=== PATIENT | female | born 1930 | race Caucasian/White ===

== ENCOUNTER 2017-03-19 21:25 | Inpatient (IN) | payer MEDICARE, OTHER ==
[~2017-03-19] VITALS: Ht 160 cm; Wt 57.7 kg
[2017-03-19 21:28] VITALS: Ht 160 cm; Wt 57.7 kg
[2017-03-19 23:06] LABS: BASOPHILS % 0.4 % (0.0-2.0); EOSINOPHILS # 0.5 10^3/ul (0.0-0.5); EOSINOPHILS % 4.6 % (0.0-7.0); HEMATOCRIT 41.5 % (37.0-47.0); HEMOGLOBIN 13.5 g/dl (12.0-16.0); LYMPHOCYTES # 2.9 10^3/ul (0.8-2.9); LYMPHOCYTES % 28.6 % (15.0-51.0); MEAN CORPUSCULAR HEMOGLOBIN 29.9 pg (29.0-33.0); MEAN CORPUSCULAR HGB CONC 32.5 g/dl (32.0-37.0); MEAN CORPUSCULAR VOLUME 91.8 fl (82.0-101.0); MEAN PLATELET VOLUME 11.1 fl (7.4-10.4); MONOCYTES % 9.7 % (0.0-11.0); NEUTROPHIL # 5.7 10^3/ul (1.6-7.5); NEUTROPHILS % 56.4 % (39.0-77.0); PLATELET COUNT 267 10^3/UL (140-415); RED BLOOD COUNT 4.52 10^6/ul (4.20-5.40); RED CELL DISTRIBUTION WIDTH 13.4 % (11.5-14.5); WHITE BLOOD COUNT 10.1 10^3/ul (4.8-10.8)
[2017-03-19 23:28] LABS: ALBUMIN 3.3 g/dl (3.3-4.9); ALBUMIN/GLOBULIN RATIO 0.91; BILIRUBIN,INDIRECT 0.3 mg/dl (0-1.1); BILIRUBIN,TOTAL 0.3 mg/dl (0.2-1.3); CALCIUM 9.4 mg/dl (8.4-10.2); CREATININE 0.66 mg/dl (0.44-1.00); POTASSIUM 4.2 mmol/L (3.5-5.1); TOTAL PROTEIN 6.9 g/dl (6.1-8.1)
[2017-03-20] MEDS ORDERED: PIPER-TAZO 3.375 GM IV (PMX) 50 ML IVPB STA (00:02)
[2017-03-20] MEDS ORDERED: VANCOMYCIN 1 GM (PMX) 250 ML IVPB SCH (00:30)
[2017-03-20 01:45] VITALS: TEMP 98.3
--- NOTE | 2017-03-20 02:08 | ERD ---
ER Documentation Chief Complaint Chief Complaint BIBA from [facility],left foot diabetic foot ulcer check HPI 86-year-old female brought at [facility] for left foot diabetic foot ulcer. Patient cannot provide any relevant history. History is per EMS run sheet. ROS All systems reviewed and are negative except as per history of present illness. Allergies Allergies: Coded Allergies: No Known Allergy (Unverified , 03/19/17) PMhx/Soc History of Surgery: No Anesthesia Reaction: No Hx Neurological Disorder: Yes (Dementia, ALz) Hx Psychiatric Problems: No Hx Miscellaneous Medical Probl: No Hx Alcohol Use: No Hx Substance Use: No Hx Tobacco Use: No Smoking Status: Never smoker Physical Exam Vitals Vital Signs Date Time Temp Pulse Resp B/P Pulse Ox O2 Delivery O2 Flow Rate FiO2 03/19/17 21:28 98.3 87 18 119/58 95 Physical Exam Const: [] Head: Atraumatic Eyes: Normal Conjunctiva ENT: Normal External Ears, Nose and Mouth. Neck: Full range of motion..~ No meningismus. Resp: Clear to auscultation bilaterally Cardio: Regular rate and rhythm, no murmurs Abd: Soft, non tender, non distended. Normal bowel sounds Skin: No petechiae or rashes Back: No midline or flank tenderness Ext: No cyanosis, or edema Neur: Awake and alert Psych: Normal Mood and Affect Result Diagram: 03/19/17 2300 03/19/17 2300 Results 24 hrs Laboratory Tests Test 03/19/17 23:00 White Blood Count 10.110^3/ul Red Blood Count 4.5210^6/ul Hemoglobin 13.5g/dl Hematocrit 41.5% Mean Corpuscular Volume 91.8fl Mean Corpuscular Hemoglobin 29.9pg Mean Corpuscular Hemoglobin Concent 32.5g/dl Red Cell Distribution Width 13.4% Platelet Count 82442^3/UL Mean Platelet Volume 11.1fl Neutrophils % 56.4% Lymphocytes % 28.6% Monocytes % 9.7% Eosinophils % 4.6% Basophils % 0.4% Nucleated Red Blood Cells % 0.0/100WBC Neutrophils # 5.710^3/ul Lymphocytes # 2.910^3/ul Monocytes # 1.010^3/ul Eosinophils # 0.510^3/ul Basophils # 0.010^3/ul Nucleated Red Blood Cells # 0.010^3/ul Sodium Level 142mmol/L Potassium Level 4.2mmol/L Chloride Level 109mmol/L Carbon Dioxide Level 29mmol/L Anion Gap 8 Blood Urea Nitrogen 21mg/dl Creatinine 0.66mg/dl Glucose Level 115mg/dl Calcium Level 9.4mg/dl Total Bilirubin 0.3mg/dl Direct Bilirubin 0.00mg/dl Indirect Bilirubin 0.3mg/dl Aspartate Amino Transf (AST/SGOT) 21IU/L Alanine Aminotransferase (ALT/SGPT) 32IU/L Alkaline Phosphatase 111IU/L Total Protein 6.9g/dl Albumin 3.3g/dl Globulin 3.60g/dl Albumin/Globulin Ratio 0.91 Lipase 53U/L Current Medications Medications (Trade) Dose Ordered Sig/Osmin Route PRN Reason Start Time Stop Time Status Last Admin Dose Admin Piperacillin Sod/ Tazobactam Sod 50 ml @ 100 mls/hr ONCE STAT IVPB 03/20/17 00:02 03/20/17 00:31 DC 03/20/17 01:23 Vancomycin HCl (Vancocin) 250 ml @ 125 mls/hr ONCE IVPB 03/20/17 00:30 03/20/17 02:29 03/20/17 01:57 Procedures/MDM Medical decision made: 86 year female who looks to be infected diabetic foot ulcer. Started on Zosyn. Admitted to observation status to hospitalist Departure Diagnosis: Primary Impression: Encounter for wound re-check Condition: Serious JOSE ANTONIO NATHAN Mar 20, 2017 02:08
[2017-03-20 03:40] VITALS: BP 115/56; RESP 20
[2017-03-20] MEDS ORDERED: LEVE500S8 GTB ×2 (04:22→04:25)
[2017-03-20] MEDS ORDERED: SYN1 PO (04:26)
[2017-03-20] MEDS ORDERED: AMLO2.5T2 PO (04:28)
[2017-03-20] MEDS ORDERED: LISI20TA11 PO (04:28)
[2017-03-20] MEDS ORDERED: TRAM-40 GTB (04:29)
[2017-03-20] MEDS ORDERED: PANT40TA3 PO (04:29)
[2017-03-20] MEDS ORDERED: PENDING SANTYL ORDER FOR WOUND CARE XX PRN (04:30)
[2017-03-20] MEDS ORDERED: VANCOMYCIN IV PER PHARMACY XX SCH (04:30)
[2017-03-20] MEDS ORDERED: ASC500 PO (04:30)
[2017-03-20] MEDS ORDERED: GLUCAGON 1 MG INJ IM PRN (05:00)
[2017-03-20] MEDS ORDERED: DEXTROSE 50% 50 ML SYRINGE IV PRN ×2 (05:00)
[2017-03-20] MEDS ORDERED: GLUCOSE GEL 15 GRAM TUBE BUCCAL PRN (05:00)
[2017-03-20] MEDS ORDERED: GLUCOSE GEL 15 GRAM TUBE PO PRN ×2 (05:00)
[2017-03-20] MEDS ORDERED: INSULIN ASPART [NOVOLOG] 3 ML PEN SC SCH (05:00)
[2017-03-20] MEDS: INSULIN ASPART [NOVOLOG] 3 ML PEN SC SCH ×3 (05:57→18:06)
[2017-03-20] MEDS: ACCU-CHEK XX SCH ×3 (05:57→18:00)
[2017-03-20 07:56] LABS: BASOPHIL # 0.1 10^3/ul (0.0-0.1); BASOPHILS % 0.5 % (0.0-2.0); EOSINOPHILS # 0.5 10^3/ul (0.0-0.5); EOSINOPHILS % 5.2 % (0.0-7.0); HEMATOCRIT 39.2 % (37.0-47.0); HEMOGLOBIN 12.7 g/dl (12.0-16.0); LYMPHOCYTES # 2.8 10^3/ul (0.8-2.9); LYMPHOCYTES % 27.3 % (15.0-51.0); MEAN CORPUSCULAR HEMOGLOBIN 30.2 pg (29.0-33.0); MEAN CORPUSCULAR HGB CONC 32.4 g/dl (32.0-37.0); MEAN CORPUSCULAR VOLUME 93.1 fl (82.0-101.0); MEAN PLATELET VOLUME 11.3 fl (7.4-10.4); NEUTROPHIL # 5.9 10^3/ul (1.6-7.5); NEUTROPHILS % 56.6 % (39.0-77.0); PLATELET COUNT 273 10^3/UL (140-415); RED BLOOD COUNT 4.21 10^6/ul (4.20-5.40); RED CELL DISTRIBUTION WIDTH 13.5 % (11.5-14.5); WHITE BLOOD COUNT 10.3 10^3/ul (4.8-10.8)
[2017-03-20 08:02] LABS: ALBUMIN 3.1 g/dl (3.3-4.9); ALBUMIN/GLOBULIN RATIO 0.83; BILIRUBIN,INDIRECT 0.5 mg/dl (0-1.1); BILIRUBIN,TOTAL 0.5 mg/dl (0.2-1.3); CALCIUM 9.3 mg/dl (8.4-10.2); CREATININE 0.71 mg/dl (0.44-1.00); POTASSIUM 5.2 mmol/L (3.5-5.1); TOTAL PROTEIN 6.8 g/dl (6.1-8.1)
[2017-03-20 08:11] VITALS: BP_SYST 131; BP_SYST 82; BP_DIAS 59; BP_DIAS 75; RESP 18
[2017-03-20] MEDS: LISINOPRIL 20 MG TAB PO SCH (09:00)
[2017-03-20] MEDS: AMLODIPINE 2.5 MG TAB PO SCH ×2 (09:00→21:02)
[2017-03-20] MEDS: LEVOTHYROXINE 100 MCG TAB PO SCH (09:22)
[2017-03-20] MEDS: CEFEPIME 1GM/50 ML (PMX) 50 ML IVPB SCH ×2 (09:22→21:02)
[2017-03-20] MEDS: LEVETIRACETAM (100 MG/ML) 5ML CUP GTB SCH ×2 (09:22→21:02)
[2017-03-20] MEDS: ASCORBIC ACID 500 MG TAB PO SCH (09:22)
[2017-03-20 15:23] VITALS: BP 91/62
--- NOTE | 2017-03-20 15:39 | PN ---
Date/Time of Note Date/Time of Note DATE: 03/20/17 TIME: 15:35 Assessment/Plan VTE Prophylaxis VTE Prophylaxis Intervention: SCD's Lines/Catheters IV Catheter Type (from [facility] [place]): Saline Lock Urinary Cath still in place: No Assessment/Plan Chief Complaint/Hosp Course Assessment and plan 1. Left foot heel decubitus ulcer. Airconditioning Drafting Officer consulted. Will also get infectious disease regulatory services consultant for antibiotic management. 2. Diabetes. Continue insulin regimen. Will adjust need. 3. Suspect history of seizure. Continue Keppra 4. Hypertension. Continue on antihypertensives. Adjust as needed. 5..Dementia. Continue with aspiration and fall precautions Disposition plan: Continue antibiotics. Wound child care specialist to follow. Follow-up with screw eye assembler. Discussed plan of care with Dr. Velarde Problems: Subjective 24 Hr Interval Summary Free Text/Dictation no s/s of distress. nonverbal at baseline Exam/Review of Systems Vital Signs Vitals Vital Signs Date Time Temp Pulse Resp B/P Pulse Ox O2 Delivery O2 Flow Rate FiO2 03/20/17 15:23 98.1 68 91/62 96 03/20/17 08:11 18 03/20/17 01:45 Room Air Intake and Output 03/19/17 03/19/17 03/20/17 15:00 23:00 07:00 Intake Total 250 ml Balance 250 ml Exam Constitutional: alert, No oriented Eyes: nl conjunctiva Neck: supple Respiratory: clear to auscultation, normal air movement Cardiovascular: other Gastrointestinal: other (PEG tube in place), soft (Regular rate) Musculoskeletal: other (Left foot heel decubitus ulcer) Neurological: other (Nonverbal at baseline) Results Result Diagram: 03/20/1751903/20/17 0520 Results 24 hrs Laboratory Tests Test 03/19/17 23:00 03/20/17 03:46 03/20/17 05:20 03/20/17 05:29 White Blood Count 10.1 10.3 Red Blood Count 4.52 4.21 Hemoglobin 13.5 12.7 Hematocrit 41.5 39.2 Mean Corpuscular Volume 91.8 93.1 Mean Corpuscular Hemoglobin 29.9 30.2 Mean Corpuscular Hemoglobin Concent 32.5 32.4 Red Cell Distribution Width 13.4 13.5 Platelet Count 267 273 Mean Platelet Volume 11.1 H 11.3 H Neutrophils % 56.4 56.6 Lymphocytes % 28.6 27.3 Monocytes % 9.7 10.0 Eosinophils % 4.6 5.2 Basophils % 0.4 0.5 Nucleated Red Blood Cells % 0.0 0.0 Neutrophils # 5.7 5.9 Lymphocytes # 2.9 2.8 Monocytes # 1.0 H 1.0 H Eosinophils # 0.5 0.5 Basophils # 0.0 0.1 Nucleated Red Blood Cells # 0.0 0.0 Sodium Level 142 144 Potassium Level 4.2 5.2 H Chloride Level 109 114 H Carbon Dioxide Level 29 25 Anion Gap 8 10 Blood Urea Nitrogen 21 H 20 Creatinine 0.66 0.71 Glucose Level 115 115 Calcium Level 9.4 9.3 Total Bilirubin 0.3 0.5 Direct Bilirubin 0.00 0.00 Indirect Bilirubin 0.3 0.5 Aspartate Amino Transf (AST/SGOT) 21 46 Alanine Aminotransferase (ALT/SGPT) 32 14 Alkaline Phosphatase 111 104 Total Protein 6.9 6.8 Albumin 3.3 3.1 L Globulin 3.60 H 3.70 H Albumin/Globulin Ratio 0.91 0.83 Lipase 53 Bedside Glucose 127 Hemoglobin A1c 5.9 Test 03/20/17 05:56 03/20/17 12:12 Bedside Glucose 127 121 Medications Medications Current Medications Cefepime HCl (Maxipime 1gm/50 ml (Pmx)) 50 ml @ 100 mls/hr Q12 IVPB Last administered on 03/20/17t 09:22; Admin Dose 100 MLS/HR; Start 03/20/17 at 09: 00 Diagnostic Test (Pha) (Accu-Chek) 1 ea Q6 XX ; Start 03/20/17 at 06:00 Miscellaneous Information (Pending Santyl Order For Wound Care) This patient torres... PRN PRN XX WOUND CARE; Start 03/20/17 at 04:30 Miscellaneous Information 1 ea NOTE XX ; Start 03/20/17 at 05:00 Glucose (Glutose) 15 gm Q15M PRN PO DECREASED GLUCOSE; Start 03/20/17 at 05:00 Glucose (Glutose) 22.5 gm Q15M PRN PO DECREASED GLUCOSE; Start 03/20/17 at 05: 00 Dextrose (D50w Syringe) 25 ml Q15M PRN IV DECREASED GLUCOSE; Start 03/20/17 at 05:00 Dextrose (D50w Syringe) 50 ml Q15M PRN IV DECREASED GLUCOSE; Start 03/20/17 at 05:00 Glucagon (Glucagen) 1 mg Q15M PRN IM DECREASED GLUCOSE; Start 03/20/17 at 05: 00 Glucose 15 gm 15 gm Q15M PRN BUCCAL DECREASED GLUCOSE; Start 03/20/17 at 05:00 Vancomycin HCl/ Dextrose/Water (Vancocin/D5W) 150 ml @ 75 mls/hr Q24H IVPB ; Start 03/21/17 at 02:00 Insulin Aspart (Novolog Insulin Pen) NOVOLOG *MODERATE* ALGORI... Q6 SC ; Start 03/20/17 at 06:00 Amlodipine Besylate (Norvasc) 2.5 mg BID PO ; Start 03/20/17 at 09:00 Ascorbic Acid (Vitamin C) 500 mg DAILY PO Last administered on 03/20/17 09:22 ; Admin Dose 500 MG; Start 03/20/17 at 09:00 Levetiracetam (Keppra Liquid) 500 mg BID GTB Last administered on 03/20/17 09 :22; Admin Dose 500 MG; Start 03/20/17 at 09:00 Lisinopril (Zestril) 20 mg DAILY PO ; Start 03/20/17 at 09:00 Tramadol HCl (Ultram) 50 mg Q6H PRN GTB PAIN; Start 03/20/17 at 07:00 Influenza Virus Vaccine (Fluzone) 0.5 ml ONCE ONCE IM* ; Start 03/21/17 at 09: 00; Stop 03/21/17 at 09:01 Collagenase (Santyl) 1 applic DAILY TOP ; Start 03/21/17 at 21:00 MARY KAY CORONADO Mar 20, 2017 15:39
[2017-03-20] MEDS ORDERED: NA POLYST SULFON 15 GM/60 ML BTL GTB ONE (20:30)
[2017-03-20 20:47] VITALS: BP 139/62; RESP 19
--- NOTE | 2017-03-20 23:51 | HP ---
Date/Time of Note Date/Time of Note DATE: 03/20/17 TIME: 23:51 Assessment/Plan VTE Prophylaxis VTE Prophylaxis Intervention: heparin Lines/Catheters [facility] Saline Lock Urinary Cath still in place: No Assessment/Plan Assessment/Plan 86 yo female with hx of severe dementia, CAD, DM, ?seizure who was sent from [facility] for left diabetic foot ulcer. PLAN IV abx pain mgmt wound care consult wound culture podiatry eval. will leave decision to podiatry about imaging cont home meds with adjustment as needed CODE STATUS: DNR/DNI HPI/ROS Admit Date/Time Admit Date/Time Mar 20, 2017 at 03:35 Hx of Present Illness This is an 86 yo female with hx of severe dementia, CAD, DM, ?seizure who was sent from [facility] for left diabetic foot ulcer. patient is not able to provide hx, but noted to be moaning moved and during physical exam. Vitals, CBC and CMP WNL. PMH/Family/Social Social History Smoking Status: Unknown if ever smoked Exam/Review of Systems Vital Signs Vitals Vital Signs Date Time Temp Pulse Resp B/P Pulse Ox O2 Delivery O2 Flow Rate FiO2 03/20/17 20:47 98.7 81 19 139/62 93 03/20/17 01:45 Room Air Intake and Output 03/19/17 03/19/17 03/20/17 15:00 23:00 07:00 Intake Total 250 ml Balance 250 ml Exam Constitutional: distress Head: atraumatic, normocephalic Eyes: PERRL Respiratory: clear to auscultation Cardiovascular: nl pulses, regular rate and rhythm Gastrointestinal: soft Extremities: other (left foot/LE ulcer) Labs Result Diagram: 03/20/1751903/20/17519 Medications Medications Current Medications Cefepime HCl (Maxipime 1gm/50 ml (Pmx)) 50 ml @ 100 mls/hr Q12 IVPB Last administered on 03/20/17t 21:02; Admin Dose 100 MLS/HR; Start 03/20/17 at 09: 00 Diagnostic Test (Pha) (Accu-Chek) 1 ea Q6 XX ; Start 03/20/17 at 06:00 [facility] This patient torres... PRN PRN XX WOUND CARE; Start 03/20/17 at 04:30 Miscellaneous Information 1 ea NOTE XX ; Start 03/20/17 at 05:00 Glucose (Glutose) 15 gm Q15M PRN PO DECREASED GLUCOSE; Start 03/20/17 at 05:00 Glucose (Glutose) 22.5 gm Q15M PRN PO DECREASED GLUCOSE; Start 03/20/17 at 05: 00 Dextrose (D50w Syringe) 25 ml Q15M PRN IV DECREASED GLUCOSE; Start 03/20/17 at 05:00 Dextrose (D50w Syringe) 50 ml Q15M PRN IV DECREASED GLUCOSE; Start 03/20/17 at 05:00 Glucagon (Glucagen) 1 mg Q15M PRN IM DECREASED GLUCOSE; Start 03/20/17 at 05: 00 Glucose 15 gm 15 gm Q15M PRN BUCCAL DECREASED GLUCOSE; Start 03/20/17 at 05:00 Vancomycin HCl/ Dextrose/Water (Vancocin/D5W) 150 ml @ 75 mls/hr Q24H IVPB ; Start 03/21/17 at 02:00 Insulin Aspart (Novolog Insulin Pen) NOVOLOG *MODERATE* ALGORI... Q6 SC Last administered on 03/20/17 18:06; Admin Dose 1 UNIT; Start 03/20/17 at 06:00 Amlodipine Besylate (Norvasc) 2.5 mg BID PO Last administered on 03/20/17 21: 02; Admin Dose 2.5 MG; Start 03/20/17 at 09:00 Ascorbic Acid (Vitamin C) 500 mg DAILY PO Last administered on 03/20/17 09:22 ; Admin Dose 500 MG; Start 03/20/17 at 09:00 Levetiracetam (Keppra Liquid) 500 mg BID GTB Last administered on 03/20/17 21 :02; Admin Dose 500 MG; Start 03/20/17 at 09:00 Lisinopril (Zestril) 20 mg DAILY PO ; Start 03/20/17 at 09:00 Tramadol HCl (Ultram) 50 mg Q6H PRN GTB PAIN; Start 03/20/17 at 07:00 Influenza Virus Vaccine (Fluzone) 0.5 ml ONCE ONCE IM* ; Start 03/21/17 at 09: 00; Stop 03/21/17 at 09:01 Collagenase (Santyl) 1 applic DAILY TOP ; Start 03/21/17 at 21:00 JOSE ANTONIO DILLARD MD Mar 20, 2017 23:51
[2017-03-21] MEDS: INSULIN ASPART [NOVOLOG] 3 ML PEN SC SCH ×4 (00:32→17:20)
[2017-03-21] MEDS: ACCU-CHEK XX SCH ×4 (00:35→17:20)
[2017-03-21] MEDS: VANCOMYCIN 750 MG in DEXTROSE 5% 150 ML IVPB SCH (02:08)
[2017-03-21 02:11] VITALS: BP 130/79; RESP 18
[2017-03-21 05:46] LABS: BASOPHILS % 0.5 % (0.0-2.0); EOSINOPHILS # 0.4 10^3/ul (0.0-0.5); EOSINOPHILS % 4.6 % (0.0-7.0); HEMATOCRIT 39.6 % (37.0-47.0); HEMOGLOBIN 12.9 g/dl (12.0-16.0); LYMPHOCYTES # 2.4 10^3/ul (0.8-2.9); LYMPHOCYTES % 28.8 % (15.0-51.0); MEAN CORPUSCULAR HEMOGLOBIN 29.5 pg (29.0-33.0); MEAN CORPUSCULAR HGB CONC 32.6 g/dl (32.0-37.0); MEAN CORPUSCULAR VOLUME 90.6 fl (82.0-101.0); MEAN PLATELET VOLUME 10.6 fl (7.4-10.4); MONOCYTE # 0.9 10^3/ul (0.3-0.9); MONOCYTES % 10.5 % (0.0-11.0); NEUTROPHIL # 4.5 10^3/ul (1.6-7.5); NEUTROPHILS % 55.2 % (39.0-77.0); PLATELET COUNT 284 10^3/UL (140-415); RED BLOOD COUNT 4.37 10^6/ul (4.20-5.40); RED CELL DISTRIBUTION WIDTH 13.2 % (11.5-14.5); WHITE BLOOD COUNT 8.2 10^3/ul (4.8-10.8)
[2017-03-21] MEDS: LEVOTHYROXINE 100 MCG TAB PO SCH (06:10)
[2017-03-21 06:12] LABS: CALCIUM 9.1 mg/dl (8.4-10.2); CREATININE 0.67 mg/dl (0.44-1.00); POTASSIUM 3.5 mmol/L (3.5-5.1)
[2017-03-21 07:52] VITALS: BP 132/88; RESP 18
[2017-03-21] MEDS: CEFEPIME 1GM/50 ML (PMX) 50 ML IVPB SCH ×2 (08:25→21:05)
[2017-03-21] MEDS: LEVETIRACETAM (100 MG/ML) 5ML CUP GTB SCH ×2 (08:25→21:05)
[2017-03-21] MEDS: LISINOPRIL 20 MG TAB PO SCH (08:26)
[2017-03-21] MEDS: ASCORBIC ACID 500 MG TAB PO SCH (08:26)
[2017-03-21] MEDS: AMLODIPINE 2.5 MG TAB PO SCH ×2 (08:26→21:05)
[2017-03-21] MEDS ORDERED: INFLUENZA VIRUS VACCINE 0.5 ML (DISPENSING) IM* ONE (09:00)
--- NOTE | 2017-03-21 13:01 | CONS ---
Date/Time of Note Date/Time of Note DATE: 03/21/17 TIME: 13:01 Consultation Date/Type/Reason Admit Date/Time Mar 20, 2017 at 03:35 Social History Smoking Status: Unknown if ever smoked Exam/Review of Systems Vital Signs Vitals Vital Signs Date Time Temp Pulse Resp B/P Pulse Ox O2 Delivery O2 Flow Rate FiO2 03/21/17 07:52 97.9 91 18 132/88 97 03/20/17 01:45 Room Air Intake and Output 03/20/17 03/20/17 03/21/17 15:00 23:00 07:00 Intake Total 50 ml 50 ml 150 ml Balance 50 ml 50 ml 150 ml Results Result Diagram: 03/21/1752303/21/1724 Results 24 hrs Laboratory Tests Test 03/20/17 17:51 03/21/17 00:29 03/21/17 05:24 03/21/17 06:06 Bedside Glucose 154 169 149 White Blood Count 8.2 # Red Blood Count 4.37 Hemoglobin 12.9 Hematocrit 39.6 Mean Corpuscular Volume 90.6 Mean Corpuscular Hemoglobin 29.5 Mean Corpuscular Hemoglobin Concent 32.6 Red Cell Distribution Width 13.2 Platelet Count 284 Mean Platelet Volume 10.6 H Neutrophils % 55.2 Lymphocytes % 28.8 Monocytes % 10.5 Eosinophils % 4.6 Basophils % 0.5 Nucleated Red Blood Cells % 0.0 Neutrophils # 4.5 Lymphocytes # 2.4 Monocytes # 0.9 Eosinophils # 0.4 Basophils # 0.0 Nucleated Red Blood Cells # 0.0 Sodium Level 146 H Potassium Level 3.5 Chloride Level 111 H Carbon Dioxide Level 28 Anion Gap 11 Blood Urea Nitrogen 17 Creatinine 0.67 Glucose Level 134 Calcium Level 9.1 Test 03/21/17 11:50 Bedside Glucose 170 Medications Medications Current Medications Cefepime HCl (Maxipime 1gm/50 ml (Pmx)) 50 ml @ 100 mls/hr Q12 IVPB Last administered on 03/21/17 08:25; Admin Dose 100 MLS/HR; Start 03/20/17 at 09: 00 Diagnostic Test (Pha) (Accu-Chek) 1 ea Q6 XX Last administered on 03/21/17 12 :06; Admin Dose 1 EA; Start 03/20/17 at 06:00 Miscellaneous Information (Pending Santyl Order For Wound Care) This patient torres... PRN PRN XX WOUND CARE; Start 03/20/17 at 04:30 Miscellaneous Information 1 ea NOTE XX ; Start 03/20/17 at 05:00 Glucose (Glutose) 15 gm Q15M PRN PO DECREASED GLUCOSE; Start 03/20/17 at 05:00 Glucose (Glutose) 22.5 gm Q15M PRN PO DECREASED GLUCOSE; Start 03/20/17 at 05: 00 Dextrose (D50w Syringe) 25 ml Q15M PRN IV DECREASED GLUCOSE; Start 03/20/17 at 05:00 Dextrose (D50w Syringe) 50 ml Q15M PRN IV DECREASED GLUCOSE; Start 03/20/17 at 05:00 Glucagon (Glucagen) 1 mg Q15M PRN IM DECREASED GLUCOSE; Start 03/20/17 at 05: 00 Glucose 15 gm 15 gm Q15M PRN BUCCAL DECREASED GLUCOSE; Start 03/20/17 at 05:00 Vancomycin HCl/ Dextrose/Water (Vancocin/D5W) 150 ml @ 75 mls/hr Q24H IVPB Last administered on 03/21/17 02:08; Admin Dose 75 MLS/HR; Start 03/21/17 at 02:00 Insulin Aspart (Novolog Insulin Pen) NOVOLOG *MODERATE* ALGORI... Q6 SC Last administered on 03/21/17 12:09; Admin Dose 2 UNIT; Start 03/20/17 at 06:00 Amlodipine Besylate (Norvasc) 2.5 mg BID PO Last administered on 03/21/17 08: 26; Admin Dose 2.5 MG; Start 03/20/17 at 09:00 Ascorbic Acid (Vitamin C) 500 mg DAILY PO Last administered on 03/21/17 08:26 ; Admin Dose 500 MG; Start 03/20/17 at 09:00 Levetiracetam (Keppra Liquid) 500 mg BID GTB Last administered on 03/21/17 08 :25; Admin Dose 500 MG; Start 03/20/17 at 09:00 Lisinopril (Zestril) 20 mg DAILY PO Last administered on 03/21/17 08:26; Admin Dose 20 MG; Start 03/20/17 at 09:00 Tramadol HCl (Ultram) 50 mg Q6H PRN GTB PAIN; Start 03/20/17 at 07:00 Collagenase (Santyl) 1 applic DAILY TOP Last administered on 03/21/17t 00:34; Admin Dose 1 APPLIC; Start 03/21/17 at 21:00 JUNIOR BAKER MD Mar 21, 2017 13:01
--- NOTE | 2017-03-21 13:29 | CONS ---
Date/Time of Note Date/Time of Note DATE: 03/21/17 TIME: 13:27 Assessment/Plan Assessment/Plan Chief Complaint/Hosp Course 1. DM foot infection 2. hx of cad, dm 3. hx of Dementia R: probiotics cont. abx f/u cxs consider xray foot (ordered) podiatry f/u Problems: Consultation Date/Type/Reason Admit Date/Time Mar 20, 2017 at 03:35 Date of Consultation: Mar 21, 2017 Type of Consultation: id Reason for Consultation abx recs Referring Provider: MARY KAY CORONADO Hx of Present Illness 86 yo female with pmh of apparent cad,dm, seizures, advanced dementia, admitted for worsening dm foot ulcer. Social History Smoking Status: Unknown if ever smoked Exam/Review of Systems Vital Signs Vitals Vital Signs Date Time Temp Pulse Resp B/P Pulse Ox O2 Delivery O2 Flow Rate FiO2 03/21/17 07:52 97.9 91 18 132/88 97 03/20/17 01:45 Room Air Intake and Output 03/20/17 03/20/17 03/21/17 15:00 23:00 07:00 Intake Total 50 ml 50 ml 150 ml Balance 50 ml 50 ml 150 ml Results Result Diagram: 03/21/1724 03/21/17 0524 Results 24 hrs Laboratory Tests Test 03/20/17 17:51 03/21/17 00:29 03/21/17 05:24 03/21/17 06:06 Bedside Glucose 154 169 149 White Blood Count 8.2 # Red Blood Count 4.37 Hemoglobin 12.9 Hematocrit 39.6 Mean Corpuscular Volume 90.6 Mean Corpuscular Hemoglobin 29.5 Mean Corpuscular Hemoglobin Concent 32.6 Red Cell Distribution Width 13.2 Platelet Count 284 Mean Platelet Volume 10.6 H Neutrophils % 55.2 Lymphocytes % 28.8 Monocytes % 10.5 Eosinophils % 4.6 Basophils % 0.5 Nucleated Red Blood Cells % 0.0 Neutrophils # 4.5 Lymphocytes # 2.4 Monocytes # 0.9 Eosinophils # 0.4 Basophils # 0.0 Nucleated Red Blood Cells # 0.0 Sodium Level 146 H Potassium Level 3.5 Chloride Level 111 H Carbon Dioxide Level 28 Anion Gap 11 Blood Urea Nitrogen 17 Creatinine 0.67 Glucose Level 134 Calcium Level 9.1 Test 03/21/17 11:50 Bedside Glucose 170 Medications Medications Current Medications Cefepime HCl (Maxipime 1gm/50 ml (Pmx)) 50 ml @ 100 mls/hr Q12 IVPB Last administered on 03/21/17 08:25; Admin Dose 100 MLS/HR; Start 03/20/17 at 09: 00 Diagnostic Test (Pha) (Accu-Chek) 1 ea Q6 XX Last administered on 03/21/17 12 :06; Admin Dose 1 EA; Start 03/20/17 at 06:00 Miscellaneous Information (Pending Santyl Order For Wound Care) This patient torres... PRN PRN XX WOUND CARE; Start 03/20/17 at 04:30 Miscellaneous Information 1 ea NOTE XX ; Start 03/20/17 at 05:00 Glucose (Glutose) 15 gm Q15M PRN PO DECREASED GLUCOSE; Start 03/20/17 at 05:00 Glucose (Glutose) 22.5 gm Q15M PRN PO DECREASED GLUCOSE; Start 03/20/17 at 05: 00 Dextrose (D50w Syringe) 25 ml Q15M PRN IV DECREASED GLUCOSE; Start 03/20/17 at 05:00 Dextrose (D50w Syringe) 50 ml Q15M PRN IV DECREASED GLUCOSE; Start 03/20/17 at 05:00 Glucagon (Glucagen) 1 mg Q15M PRN IM DECREASED GLUCOSE; Start 03/20/17 at 05: 00 Glucose 15 gm 15 gm Q15M PRN BUCCAL DECREASED GLUCOSE; Start 03/20/17 at 05:00 Vancomycin HCl/ Dextrose/Water (Vancocin/D5W) 150 ml @ 75 mls/hr Q24H IVPB Last administered on 03/21/17 02:08; Admin Dose 75 MLS/HR; Start 03/21/17 at 02:00 Insulin Aspart (Novolog Insulin Pen) NOVOLOG *MODERATE* ALGORI... Q6 SC Last administered on 03/21/17 12:09; Admin Dose 2 UNIT; Start 03/20/17 at 06:00 Amlodipine Besylate (Norvasc) 2.5 mg BID PO Last administered on 03/21/17 08: 26; Admin Dose 2.5 MG; Start 03/20/17 at 09:00 Ascorbic Acid (Vitamin C) 500 mg DAILY PO Last administered on 03/21/17 08:26 ; Admin Dose 500 MG; Start 03/20/17 at 09:00 Levetiracetam (Keppra Liquid) 500 mg BID GTB Last administered on 03/21/17 08 :25; Admin Dose 500 MG; Start 03/20/17 at 09:00 Lisinopril (Zestril) 20 mg DAILY PO Last administered on 03/21/17 08:26; Admin Dose 20 MG; Start 03/20/17 at 09:00 Tramadol HCl (Ultram) 50 mg Q6H PRN GTB PAIN; Start 03/20/17 at 07:00 Collagenase (Santyl) 1 applic DAILY TOP Last administered on 03/21/17 00:34; Admin Dose 1 APPLIC; Start 03/21/17 at 21:00 JUNIOR BAKER MD Mar 21, 2017 13:29
--- NOTE | 2017-03-21 13:34 | CONS ---
Date/Time of Note Date/Time of Note DATE: 03/21/17 TIME: 13:30 Assessment/Plan Assessment/Plan Problems: (1) Decubitus ulcer of left heel, stage 3 (2) Contracture of muscle of lower extremity (3) Diabetes, polyneuropathy (4) Peripheral vascular disease Additional Assessment/Plan Daily dressing changes with Santyl ointment to the wound. Elevate heels off of the bed with pillows. Patient will be followed in-house. Consultation Date/Type/Reason Admit Date/Time Mar 20, 2017 at 03:35 Date of Consultation: Mar 21, 2017 Type of Consultation: Foot and ankle surgery Reason for Consultation Decubitus ulcer left heel Hx of Present Illness Thank you very much for involving care of this patient. As you know and 86-year -old female patient with history of severe dementia, diabetes mellitus, CAD who and seizure disorder was brought over from [facility] for left foot ulceration. I was consulted for evaluation. Most of the history is obtained from chart review. Constitutional: no complaints Eyes: no complaints ENT: no complaints Respiratory: no complaints Cardiovascular: no complaints Gastrointestinal: no complaints Past Medical History As per history of present illness. Past Surgical History As per history of present illness. Social History As per history of present illness. Smoking Status: Unknown if ever smoked Exam/Review of Systems Vital Signs Vitals Vital Signs Date Time Temp Pulse Resp B/P Pulse Ox O2 Delivery O2 Flow Rate FiO2 03/21/17 07:52 97.9 91 18 132/88 97 03/20/17 01:45 Room Air Intake and Output 03/20/17 03/20/17 03/21/17 15:00 23:00 07:00 Intake Total 50 ml 50 ml 150 ml Balance 50 ml 50 ml 150 ml Exam Severely contracted patient no acute distress. Heel decubitus ulceration noted on the left heel with contracted lower extremity. There is necrotic tissue at the base with no active pus or bleeding. There is no erythema noted. Nonpalpable dorsalis pedis and posterior tibial pulse. Sensation is decreased to sharp dull vibratory temperature stimuli. Results Result Diagram: 03/21/17 0524 03/21/17 0524 Results 24 hrs Laboratory Tests Test 03/20/17 17:51 03/21/17 00:29 03/21/17 05:24 03/21/17 06:06 Bedside Glucose 154 169 149 White Blood Count 8.2 # Red Blood Count 4.37 Hemoglobin 12.9 Hematocrit 39.6 Mean Corpuscular Volume 90.6 Mean Corpuscular Hemoglobin 29.5 Mean Corpuscular Hemoglobin Concent 32.6 Red Cell Distribution Width 13.2 Platelet Count 284 Mean Platelet Volume 10.6 H Neutrophils % 55.2 Lymphocytes % 28.8 Monocytes % 10.5 Eosinophils % 4.6 Basophils % 0.5 Nucleated Red Blood Cells % 0.0 Neutrophils # 4.5 Lymphocytes # 2.4 Monocytes # 0.9 Eosinophils # 0.4 Basophils # 0.0 Nucleated Red Blood Cells # 0.0 Sodium Level 146 H Potassium Level 3.5 Chloride Level 111 H Carbon Dioxide Level 28 Anion Gap 11 Blood Urea Nitrogen 17 Creatinine 0.67 Glucose Level 134 Calcium Level 9.1 Test 03/21/17 11:50 Bedside Glucose 170 Medications Medications Current Medications Cefepime HCl (Maxipime 1gm/50 ml (Pmx)) 50 ml @ 100 mls/hr Q12 IVPB Last administered on 03/21/17 08:25; Admin Dose 100 MLS/HR; Start 03/20/17 at 09: 00 Diagnostic Test (Pha) (Accu-Chek) 1 ea Q6 XX Last administered on 03/21/17 12 :06; Admin Dose 1 EA; Start 03/20/17 at 06:00 [facility] This patient torres... PRN PRN XX WOUND CARE; Start 03/20/17 at 04:30 Miscellaneous Information 1 ea NOTE XX ; Start 03/20/17 at 05:00 Glucose (Glutose) 15 gm Q15M PRN PO DECREASED GLUCOSE; Start 03/20/17 at 05:00 Glucose (Glutose) 22.5 gm Q15M PRN PO DECREASED GLUCOSE; Start 03/20/17 at 05: 00 Dextrose (D50w Syringe) 25 ml Q15M PRN IV DECREASED GLUCOSE; Start 03/20/17 at 05:00 Dextrose (D50w Syringe) 50 ml Q15M PRN IV DECREASED GLUCOSE; Start 03/20/17 at 05:00 Glucagon (Glucagen) 1 mg Q15M PRN IM DECREASED GLUCOSE; Start 03/20/17 at 05: 00 Glucose 15 gm 15 gm Q15M PRN BUCCAL DECREASED GLUCOSE; Start 03/20/17 at 05:00 Vancomycin HCl/ Dextrose/Water (Vancocin/D5W) 150 ml @ 75 mls/hr Q24H IVPB Last administered on 03/21/17 02:08; Admin Dose 75 MLS/HR; Start 03/21/17 at 02:00 Insulin Aspart (Novolog Insulin Pen) NOVOLOG *MODERATE* ALGORI... Q6 SC Last administered on 03/21/17 12:09; Admin Dose 2 UNIT; Start 03/20/17 at 06:00 Amlodipine Besylate (Norvasc) 2.5 mg BID PO Last administered on 03/21/17 08: 26; Admin Dose 2.5 MG; Start 03/20/17 at 09:00 Ascorbic Acid (Vitamin C) 500 mg DAILY PO Last administered on 03/21/17 08:26 ; Admin Dose 500 MG; Start 03/20/17 at 09:00 Levetiracetam (Keppra Liquid) 500 mg BID GTB Last administered on 03/21/17 08 :25; Admin Dose 500 MG; Start 03/20/17 at 09:00 Lisinopril (Zestril) 20 mg DAILY PO Last administered on 03/21/17 08:26; Admin Dose 20 MG; Start 03/20/17 at 09:00 Tramadol HCl (Ultram) 50 mg Q6H PRN GTB PAIN; Start 03/20/17 at 07:00 Collagenase (Santyl) 1 applic DAILY TOP Last administered on 03/21/17 00:34; Admin Dose 1 APPLIC; Start 03/21/17 at 21:00 NICANOR HARP DPM Mar 21, 2017 13:34
[2017-03-21 14:28] VITALS: BP 110/56; RESP 20
--- NOTE | 2017-03-21 14:43 | PN ---
Date/Time of Note Date/Time of Note DATE: 03/21/17 TIME: 14:32 Assessment/Plan VTE Prophylaxis VTE Prophylaxis Intervention: SCD's Lines/Catheters IV C[facility]ter Type (from [facility]): Saline Lock Urinary Cath still in place: No Assessment/Plan Chief Complaint/Hosp Course Assessment and plan 1. Left foot heel decubitus ulcer. Crib Attendant consulted. continue wound care. abx regimen per ID 2. Diabetes. Continue insulin regimen. Will adjust need. 3. Suspect history of seizure. Continue Keppra 4. Hypertension. Continue on antihypertensives. Adjust as needed. 5..Dementia. Continue with aspiration and fall precautions Disposition plan: Continue antibiotics. continue wound care. d/c when cleared by consultants Discussed plan of care with Dr. Velarde Problems: Subjective 24 Hr Interval Summary Free Text/Dictation comfortable at present. no s/s of distress Exam/Review of Systems Vital Signs Vitals Vital Signs Date Time Temp Pulse Resp B/P Pulse Ox O2 Delivery O2 Flow Rate FiO2 03/21/17 14:28 97.7 76 20 110/56 97 03/20/17 01:45 Room Air Intake and Output 03/20/17 03/20/17 03/21/17 15:00 23:00 07:00 Intake Total 50 ml 50 ml 150 ml Balance 50 ml 50 ml 150 ml Exam Constitutional: alert (confused at baseline ) Psych: no complaints Head: normocephalic Eyes: nl conjunctiva Neck: non-tender, supple Respiratory: clear to auscultation Cardiovascular: nl pulses, regular rate and rhythm Gastrointestinal: non-tender, soft Musculoskeletal: nl extremities to inspection 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 (underlying dementia) Skin: nl turgor Results Result Diagram: 03/21/1724 03/21/17 0524 Results 24 hrs Laboratory Tests Test 03/20/17 17:51 03/21/17 00:29 03/21/17 05:24 03/21/17 06:06 Bedside Glucose 154 169 149 White Blood Count 8.2 # Red Blood Count 4.37 Hemoglobin 12.9 Hematocrit 39.6 Mean Corpuscular Volume 90.6 Mean Corpuscular Hemoglobin 29.5 Mean Corpuscular Hemoglobin Concent 32.6 Red Cell Distribution Width 13.2 Platelet Count 284 Mean Platelet Volume 10.6 H Neutrophils % 55.2 Lymphocytes % 28.8 Monocytes % 10.5 Eosinophils % 4.6 Basophils % 0.5 Nucleated Red Blood Cells % 0.0 Neutrophils # 4.5 Lymphocytes # 2.4 Monocytes # 0.9 Eosinophils # 0.4 Basophils # 0.0 Nucleated Red Blood Cells # 0.0 Sodium Level 146 H Potassium Level 3.5 Chloride Level 111 H Carbon Dioxide Level 28 Anion Gap 11 Blood Urea Nitrogen 17 Creatinine 0.67 Glucose Level 134 Calcium Level 9.1 Test 03/21/17 11:50 Bedside Glucose 170 Medications Medications Current Medications Cefepime HCl (Maxipime 1gm/50 ml (Pmx)) 50 ml @ 100 mls/hr Q12 IVPB Last administered on 03/21/17 08:25; Admin Dose 100 MLS/HR; Start 03/20/17 at 09: 00 Diagnostic Test (Pha) (Accu-Chek) 1 ea Q6 XX Last administered on 03/21/17 12 :06; Admin Dose 1 EA; Start 03/20/17 at 06:00 Miscellaneous Information (Pending [facility] Order For Wound Care) This patient torres... PRN PRN XX WOUND CARE; Start 03/20/17 at 04:30 Miscellaneous Information 1 ea NOTE XX ; Start 03/20/17 at 05:00 Glucose (Glutose) 15 gm Q15M PRN PO DECREASED GLUCOSE; Start 03/20/17 at 05:00 Glucose (Glutose) 22.5 gm Q15M PRN PO DECREASED GLUCOSE; Start 03/20/17 at 05: 00 Dextrose (D50w Syringe) 25 ml Q15M PRN IV DECREASED GLUCOSE; Start 03/20/17 at 05:00 Dextrose (D50w Syringe) 50 ml Q15M PRN IV DECREASED GLUCOSE; Start 03/20/17 at 05:00 Glucagon (Glucagen) 1 mg Q15M PRN IM DECREASED GLUCOSE; Start 03/20/17 at 05: 00 Glucose 15 gm 15 gm Q15M PRN BUCCAL DECREASED GLUCOSE; Start 03/20/17 at 05:00 Vancomycin HCl/ Dextrose/Water (Vancocin/D5W) 150 ml @ 75 mls/hr Q24H IVPB Last administered on 03/21/17 02:08; Admin Dose 75 MLS/HR; Start 03/21/17 at 02:00 Insulin Aspart (Novolog Insulin Pen) NOVOLOG *MODERATE* ALGORI... Q6 SC Last administered on 03/21/17 12:09; Admin Dose 2 UNIT; Start 03/20/17 at 06:00 Amlodipine Besylate (Norvasc) 2.5 mg BID PO Last administered on 03/21/17 08: 26; Admin Dose 2.5 MG; Start 03/20/17 at 09:00 Ascorbic Acid (Vitamin C) 500 mg DAILY PO Last administered on 03/21/17 08:26 ; Admin Dose 500 MG; Start 03/20/17 at 09:00 Levetiracetam (Keppra Liquid) 500 mg BID GTB Last administered on 03/21/17 08 :25; Admin Dose 500 MG; Start 03/20/17 at 09:00 Lisinopril (Zestril) 20 mg DAILY PO Last administered on 03/21/17 08:26; Admin Dose 20 MG; Start 03/20/17 at 09:00 Tramadol HCl (Ultram) 50 mg Q6H PRN GTB PAIN; Start 03/20/17 at 07:00 Collagenase (Santyl) 1 applic DAILY TOP Last administered on 03/21/17 00:34; Admin Dose 1 APPLIC; Start 03/21/17 at 21:00 MARY KAY CORONADO Mar 21, 2017 14:43
[2017-03-21 20:00] VITALS: BP 119/56; RESP 19
[2017-03-21] MEDS ORDERED: COLLAGENASE 30 GM TUBE TOP SCH (21:00)
[2017-03-22] MEDS: INSULIN ASPART [NOVOLOG] 3 ML PEN SC SCH ×4 (00:16→17:23)
[2017-03-22] MEDS: ACCU-CHEK XX SCH ×4 (00:21→17:23)
[2017-03-22] MEDS: VANCOMYCIN 750 MG in DEXTROSE 5% 150 ML IVPB SCH (01:36)
[2017-03-22 02:00] VITALS: BP 122/60; RESP 18
--- NOTE | 2017-03-22 03:15 | RADRPT ---
PROCEDURE: XR Foot. CLINICAL INDICATION: evaluate for om TECHNIQUE: AP and lateral views of the left os calcis foot was obtained. The images were reviewed on a PACS workstation. COMPARISON: None . FINDINGS: Soft tissue ulceration with subcutaneous emphysema underlies the left os calcis. There is diffuse so ft tissue swelling which overlies the posterior and plantar os calcis. There is loss of cortex of th e posterior and inferior os calcis with focal osteopenia. These findings are concerning for osteomye litis. If clinically appropriate consider further evaluation with MRI of the left foot. Degenerative changes involve the tibiotalar joint and intertarsal joints. IMPRESSION: 1. Cortical loss with focal osteopenia of the posterior and inferior os calcis concerning for osteo myelitis. If clinically warranted consider further evaluation with MRI. 2. Soft tissue ulceration with subcutaneous emphysema underlying the os calcis. 3. Diffuse soft tissue edema posterior and inferior to the os calcis. 4. Demineralized osseous changes. 5. Degenerative changes of the tibiotalar and intertarsal joints. RPTAT: HRSR Physician Alverto Date Time Electronically viewed and signed by Physician Alverto on 03/22/2017 03:15 RR/
[2017-03-22 05:53] LABS: BASOPHILS % 0.4 % (0.0-2.0); EOSINOPHILS # 0.4 10^3/ul (0.0-0.5); EOSINOPHILS % 4.1 % (0.0-7.0); HEMATOCRIT 38.8 % (37.0-47.0); HEMOGLOBIN 12.6 g/dl (12.0-16.0); LYMPHOCYTES # 2.2 10^3/ul (0.8-2.9); LYMPHOCYTES % 23.5 % (15.0-51.0); MEAN CORPUSCULAR HEMOGLOBIN 29.7 pg (29.0-33.0); MEAN CORPUSCULAR HGB CONC 32.5 g/dl (32.0-37.0); MEAN CORPUSCULAR VOLUME 91.5 fl (82.0-101.0); MEAN PLATELET VOLUME 10.8 fl (7.4-10.4); MONOCYTE # 0.9 10^3/ul (0.3-0.9); MONOCYTES % 9.5 % (0.0-11.0); NEUTROPHIL # 5.8 10^3/ul (1.6-7.5); NEUTROPHILS % 61.8 % (39.0-77.0); PLATELET COUNT 278 10^3/UL (140-415); RED BLOOD COUNT 4.24 10^6/ul (4.20-5.40); RED CELL DISTRIBUTION WIDTH 13.3 % (11.5-14.5); WHITE BLOOD COUNT 9.4 10^3/ul (4.8-10.8)
[2017-03-22 06:13] LABS: CALCIUM 9.1 mg/dl (8.4-10.2); CREATININE 0.65 mg/dl (0.44-1.00); POTASSIUM 3.2 mmol/L (3.5-5.1)
[2017-03-22] MEDS: LEVOTHYROXINE 100 MCG TAB PO SCH (06:35)
[2017-03-22] MEDS: LEVETIRACETAM (100 MG/ML) 5ML CUP GTB SCH ×2 (08:17→20:35)
[2017-03-22 08:18] VITALS: BP 110/60; RESP 18
[2017-03-22] MEDS: ASCORBIC ACID 500 MG TAB PO SCH (08:18)
[2017-03-22] MEDS: CEFEPIME 1GM/50 ML (PMX) 50 ML IVPB SCH ×2 (08:18→20:35)
[2017-03-22] MEDS: LISINOPRIL 20 MG TAB PO SCH (08:19)
[2017-03-22] MEDS: AMLODIPINE 2.5 MG TAB PO SCH ×2 (08:19→20:36)
[2017-03-22] MEDS: COLLAGENASE 30 GM TUBE TOP SCH (09:00)
--- NOTE | 2017-03-22 09:10 | PN ---
Date/Time of Note Date/Time of Note DATE: 03/22/17 TIME: 09:03 Assessment/Plan VTE Prophylaxis VTE Prophylaxis Intervention: SCD's Lines/Catheters IV Catheter Type (from [facility]): Saline Lock Urinary Cath still in place: No Assessment/Plan Chief Complaint/Hosp Course Assessment and plan 1. Left foot heel decubitus ulcer. podiatry following.x-ray left foot showed: Cortical loss with focal osteopenia of the posterior and inferior os calcis concerning for osteomyelitis. continue with wound care and abx. follow up mri left foot 2. Diabetes. Continue insulin regimen. Will adjust as need. 3. Suspect history of seizure. Continue Keppra 4. Hypertension. Continue on antihypertensives. Adjust as needed. 5..Dementia. Continue with aspiration and fall precautions Disposition plan: Continue antibiotics. continue wound care. noted with suspect osteomyelitis of left foot. f/u podiatry recs Discussed plan of care with Dr. Velarde Problems: Subjective 24 Hr Interval Summary Free Text/Dictation no s/s of distress. comfortable at present. Exam/Review of Systems Vital Signs Vitals Vital Signs Date Time Temp Pulse Resp B/P Pulse Ox O2 Delivery O2 Flow Rate FiO2 03/22/17 08:18 97.6 70 18 110/60 95 03/20/17 01:45 Room Air Intake and Output 03/21/17 03/21/17 03/22/17 15:00 23:00 07:00 Intake Total 50 ml 50 ml 1050 ml Balance 50 ml 50 ml 1050 ml Exam Constitutional: alert (confused at baseline ) Psych: no complaints Head: normocephalic Eyes: nl conjunctiva Neck: non-tender, supple Respiratory: clear to auscultation Cardiovascular: nl pulses, regular rate and rhythm Gastrointestinal: non-tender, soft Musculoskeletal: nl extremities to inspection 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 dementia) Skin: nl turgor Results Result Diagram: 03/22/17 0503 03/22/17 0503 Results 24 hrs Laboratory Tests Test 03/21/17 11:50 03/21/17 17:18 03/21/17 23:59 03/22/17 05:03 Bedside Glucose 170 150 145 White Blood Count 9.4 Red Blood Count 4.24 Hemoglobin 12.6 Hematocrit 38.8 Mean Corpuscular Volume 91.5 Mean Corpuscular Hemoglobin 29.7 Mean Corpuscular Hemoglobin Concent 32.5 Red Cell Distribution Width 13.3 Platelet Count 278 Mean Platelet Volume 10.8 H Neutrophils % 61.8 Lymphocytes % 23.5 Monocytes % 9.5 Eosinophils % 4.1 Basophils % 0.4 Nucleated Red Blood Cells % 0.0 Neutrophils # 5.8 Lymphocytes # 2.2 Monocytes # 0.9 Eosinophils # 0.4 Basophils # 0.0 Nucleated Red Blood Cells # 0.0 Erythrocyte Sedimentation Rate 40 H Sodium Level 145 H Potassium Level 3.2 L Chloride Level 109 Carbon Dioxide Level 29 Anion Gap 10 Blood Urea Nitrogen 17 Creatinine 0.65 Glucose Level 143 Calcium Level 9.1 Test 03/22/17 06:32 Bedside Glucose 153 Medications Medications Current Medications Cefepime HCl (Maxipime 1gm/50 ml (Pmx)) 50 ml @ 100 mls/hr Q12 IVPB Last administered on 03/22/17 08:18; Admin Dose 100 MLS/HR; Start 03/20/17 at 09: 00 Diagnostic Test (Pha) (Accu-Chek) 1 ea Q6 XX Last administered on 03/22/17 06 :38; Admin Dose 1 EA; Start 03/20/17 at 06:00 Miscellaneous Information (Pending [facility] Order For Wound Care) This patient torres... PRN PRN XX WOUND CARE; Start 03/20/17 at 04:30 Miscellaneous Information 1 ea NOTE XX ; Start 03/20/17 at 05:00 Glucose (Glutose) 15 gm Q15M PRN PO DECREASED GLUCOSE; Start 03/20/17 at 05:00 Glucose (Glutose) 22.5 gm Q15M PRN PO DECREASED GLUCOSE; Start 03/20/17 at 05: 00 Dextrose (D50w Syringe) 25 ml Q15M PRN IV DECREASED GLUCOSE; Start 03/20/17 at 05:00 Dextrose (D50w Syringe) 50 ml Q15M PRN IV DECREASED GLUCOSE; Start 03/20/17 at 05:00 Glucagon (Glucagen) 1 mg Q15M PRN IM DECREASED GLUCOSE; Start 03/20/17 at 05: 00 Glucose 15 gm 15 gm Q15M PRN BUCCAL DECREASED GLUCOSE; Start 03/20/17 at 05:00 Vancomycin HCl/ Dextrose/Water (Vancocin/D5W) 150 ml @ 75 mls/hr Q24H IVPB Last administered on 03/22/17 01:36; Admin Dose 75 MLS/HR; Start 03/21/17 at 02:00 Insulin Aspart (Novolog Insulin Pen) NOVOLOG *MODERATE* ALGORI... Q6 SC Last administered on 03/22/17 06:34; Admin Dose 2 UNIT; Start 03/20/17 at 06:00 Amlodipine Besylate (Norvasc) 2.5 mg BID PO Last administered on 03/22/17 08: 19; Admin Dose 2.5 MG; Start 03/20/17 at 09:00 Ascorbic Acid (Vitamin C) 500 mg DAILY PO Last administered on 03/22/17 08:18 ; Admin Dose 500 MG; Start 03/20/17 at 09:00 Levetiracetam (Keppra Liquid) 500 mg BID GTB Last administered on 03/22/17 08 :17; Admin Dose 500 MG; Start 03/20/17 at 09:00 Lisinopril (Zestril) 20 mg DAILY PO Last administered on 03/22/17 08:19; Admin Dose 20 MG; Start 03/20/17 at 09:00 Tramadol HCl (Ultram) 50 mg Q6H PRN GTB PAIN; Start 03/20/17 at 07:00 Collagenase (Santyl) 1 applic DAILY TOP ; Start 03/22/17 at 09:00 MARY KAY CORONADO Mar 22, 2017 09:10
[2017-03-22] MEDS ORDERED: POTASSIUM CHLORIDE 250 ML IVPB ONE (12:00)
[2017-03-22] MEDS: traMADol 50 MG TAB GTB PRN (12:14)
--- NOTE | 2017-03-22 14:53 | CONS ---
Date/Time of Note Date/Time of Note DATE: 03/22/17 TIME: 14:50 Assessment/Plan Assessment/Plan Chief Complaint/Hosp Course - Left diabetic foot ulcer infection, stage 3, with likely osteomyelitis as suggested on X-ray - T2DM - Hgb A1c 5.9% - PVD - CAD - HTN - H/o CVA - Dementia - Dysphagia s/p PEG - GERD - Anxiety d/o Recommendations: - Continue vancomycin and cefepime; will adjust abx based on final cx results - pending: wound cx (prelim: Morganella morganii+GNR), blood cx (NTD) - probiotics - we recommend PICC line for penitentiary IV abx; plan for 6 weeks - continue local wound care as recommended by Podiatry Management d/w HORTENSIA Moore and Dr. Douglass Problems: Consultation Date/Type/Reason Admit Date/Time Mar 20, 2017 at 03:35 Initial Consult Date 03/21/17 Type of Consultation: Infectious Disease Referring Provider: MARY KAY CORONADO 24 HR Interval Summary Free Text/Dictation X-ray concerning for OM; MRI ordered but unable to reach family to get MRI screening completed per d/w nursing. Unable to perform ROS d/t baseline dementia/pt non-verbal. Subjective hx not possible: pt non-verbal Exam/Review of Systems Vital Signs Vitals Vital Signs Date Time Temp Pulse Resp B/P Pulse Ox O2 Delivery O2 Flow Rate FiO2 03/22/17 08:18 97.6 70 18 110/60 95 03/20/17 01:45 Room Air Intake and Output 03/21/17 03/21/17 03/22/17 15:00 23:00 07:00 Intake Total 50 ml 50 ml 1050 ml Balance 50 ml 50 ml 1050 ml Exam Constitutional: alert, frail, non-verbal, well developed Head: atraumatic, normocephalic Eyes: nl sclera Neck: supple Respiratory: clear to auscultation, normal air movement Cardiovascular: regular rate and rhythm Gastrointestinal: non-tender, other (G-tube intact), soft Musculoskeletal: muscle weakness, range of motion (limited ROM; contractures noted with muscle atrophy) Neurological: confused, other (responds to pain, demented) Skin: other (Left heel ulcer with dressing c/d/i - see nurse note and photos in chart for details) Results Result Diagram: 03/22/17 0503 03/22/17 0503 Results 24 hrs Laboratory Tests Test 03/21/17 17:18 03/21/17 23:59 03/22/17 05:03 03/22/17 06:32 Bedside Glucose 150 145 153 White Blood Count 9.4 Red Blood Count 4.24 Hemoglobin 12.6 Hematocrit 38.8 Mean Corpuscular Volume 91.5 Mean Corpuscular Hemoglobin 29.7 Mean Corpuscular Hemoglobin Concent 32.5 Red Cell Distribution Width 13.3 Platelet Count 278 Mean Platelet Volume 10.8 H Neutrophils % 61.8 Lymphocytes % 23.5 Monocytes % 9.5 Eosinophils % 4.1 Basophils % 0.4 Nucleated Red Blood Cells % 0.0 Neutrophils # 5.8 Lymphocytes # 2.2 Monocytes # 0.9 Eosinophils # 0.4 Basophils # 0.0 Nucleated Red Blood Cells # 0.0 Erythrocyte Sedimentation Rate 40 H Sodium Level 145 H Potassium Level 3.2 L Chloride Level 109 Carbon Dioxide Level 29 Anion Gap 10 Blood Urea Nitrogen 17 Creatinine 0.65 Glucose Level 143 Calcium Level 9.1 Test 03/22/17 12:12 Bedside Glucose 154 Medications Medications Current Medications Cefepime HCl (Maxipime 1gm/50 ml (Pmx)) 50 ml @ 100 mls/hr Q12 IVPB Last administered on 03/22/17 08:18; Admin Dose 100 MLS/HR; Start 03/20/17 at 09: 00 Diagnostic Test (Pha) (Accu-Chek) 1 ea Q6 XX Last administered on 03/22/17 12 :19; Admin Dose 1 EA; Start 03/20/17 at 06:00 Misc[facility] This patient torres... PRN PRN XX WOUND CARE; Start 03/20/17 at 04:30 Miscellaneous Information 1 ea NOTE XX ; Start 03/20/17 at 05:00 Glucose (Glutose) 15 gm Q15M PRN PO DECREASED GLUCOSE; Start 03/20/17 at 05:00 Glucose (Glutose) 22.5 gm Q15M PRN PO DECREASED GLUCOSE; Start 03/20/17 at 05: 00 Dextrose (D50w Syringe) 25 ml Q15M PRN IV DECREASED GLUCOSE; Start 03/20/17 at 05:00 Dextrose (D50w Syringe) 50 ml Q15M PRN IV DECREASED GLUCOSE; Start 03/20/17 at 05:00 Glucagon (Glucagen) 1 mg Q15M PRN IM DECREASED GLUCOSE; Start 03/20/17 at 05: 00 Glucose 15 gm 15 gm Q15M PRN BUCCAL DECREASED GLUCOSE; Start 03/20/17 at 05:00 Vancomycin HCl/ Dextrose/Water (Vancocin/D5W) 150 ml @ 75 mls/hr Q24H IVPB Last administered on 03/22/17 01:36; Admin Dose 75 MLS/HR; Start 03/21/17 at 02:00 Insulin Aspart (Novolog Insulin Pen) NOVOLOG *MODERATE* ALGORI... Q6 SC Last administered on 03/22/17 12:16; Admin Dose 2 UNIT; Start 03/20/17 at 06:00 Amlodipine Besylate (Norvasc) 2.5 mg BID PO Last administered on 03/22/17 08: 19; Admin Dose 2.5 MG; Start 03/20/17 at 09:00 Ascorbic Acid (Vitamin C) 500 mg DAILY PO Last administered on 03/22/17 08:18 ; Admin Dose 500 MG; Start 03/20/17 at 09:00 Levetiracetam (Keppra Liquid) 500 mg BID GTB Last administered on 03/22/17 08 :17; Admin Dose 500 MG; Start 03/20/17 at 09:00 Lisinopril (Zestril) 20 mg DAILY PO Last administered on 03/22/17 08:19; Admin Dose 20 MG; Start 03/20/17 at 09:00 Tramadol HCl (Ultram) 50 mg Q6H PRN GTB PAIN Last administered on 03/22/17 12 :14; Admin Dose 50 MG; Start 03/20/17 at 07:00 Collagenase 1 applic 1 applic DAILY TOP Last administered on 03/22/17 09:00; Admin Dose 1 APPLIC; Start 03/22/17 at 09:00 Potassium Chloride (KCl 40 MEQ/250 ML NS) 250 ml @ 62.5 mls/hr ONCE ONCE IVPB Last administered on 03/22/17 12:55; Admin Dose 62.5 MLS/HR; Start at 12:00; Stop 03/22/17 at 15:59 Miscellaneous Information (*Rx Drug Level Order Reminder*) VANCO TROUGH @ 0, 100 ON ... ONCE ONCE XX ; Start 03/23/17 at 01:00; Stop 03/23/17 at 01:01 Procedures Procedures X-ray left foot 03/21/2017: 1. Cortical loss with focal osteopenia of the posterior and inferior os calcis concerning for osteomyelitis. If clinically warranted consider further evaluation with MRI. 2. Soft tissue ulceration with subcutaneous emphysema underlying the os calcis. 3. Diffuse soft tissue edema posterior and inferior to the os calcis. 4. Demineralized osseous changes. 5. Degenerative changes of the tibiotalar and intertarsal joints. SONIYA NOBLE NP Mar 22, 2017 14:53 5. Degenerative changes of the tibiotalar and intertarsal joints. SONIYA NOBLE NP Mar 22, 2017 14:53
[2017-03-22 20:41] VITALS: BP 140/65; RESP 19
[2017-03-23 02:33] VITALS: BP 109/50; RESP 18
[2017-03-23] MEDS: VANCOMYCIN 750 MG in DEXTROSE 5% 150 ML IVPB SCH ×2 (02:54→15:54)
[2017-03-23] MEDS: ACCU-CHEK XX SCH ×4 (06:00→17:50)
[2017-03-23] MEDS: INSULIN ASPART [NOVOLOG] 3 ML PEN SC SCH ×4 (06:15→17:50)
[2017-03-23] MEDS: LEVOTHYROXINE 100 MCG TAB PO SCH (06:18)
[2017-03-23 06:38] LABS: BASOPHIL # 0.1 10^3/ul (0.0-0.1); BASOPHILS % 0.5 % (0.0-2.0); EOSINOPHILS # 0.5 10^3/ul (0.0-0.5); EOSINOPHILS % 5.2 % (0.0-7.0); HEMATOCRIT 38.9 % (37.0-47.0); HEMOGLOBIN 12.5 g/dl (12.0-16.0); LYMPHOCYTES # 2.9 10^3/ul (0.8-2.9); LYMPHOCYTES % 28.6 % (15.0-51.0); MEAN CORPUSCULAR HEMOGLOBIN 29.4 pg (29.0-33.0); MEAN CORPUSCULAR HGB CONC 32.1 g/dl (32.0-37.0); MEAN CORPUSCULAR VOLUME 91.5 fl (82.0-101.0); MONOCYTE # 0.9 10^3/ul (0.3-0.9); MONOCYTES % 9.2 % (0.0-11.0); NEUTROPHIL # 5.6 10^3/ul (1.6-7.5); NEUTROPHILS % 55.6 % (39.0-77.0); PLATELET COUNT 271 10^3/UL (140-415); RED BLOOD COUNT 4.25 10^6/ul (4.20-5.40); RED CELL DISTRIBUTION WIDTH 13.5 % (11.5-14.5); WHITE BLOOD COUNT 10.1 10^3/ul (4.8-10.8)
[2017-03-23 07:08] LABS: CALCIUM 9.5 mg/dl (8.4-10.2); CREATININE 0.66 mg/dl (0.44-1.00); POTASSIUM 3.9 mmol/L (3.5-5.1)
[2017-03-23 08:02] VITALS: BP 111/58; RESP 20
--- NOTE | 2017-03-23 08:07 | CONS ---
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 Problems: Consultation Date/Type/Reason Admit Date/Time Mar 22, 2017 at 19:02 Initial Consult Date 03/21/17 Type of Consultation: Infectious Disease Referring Provider: MARY KAY CORONADO Exam/Review of Systems Vital Signs Vitals Vital Signs Date Time Temp Pulse Resp B/P Pulse Ox O2 Delivery O2 Flow Rate FiO2 03/23/17 08:02 98.0 85 20 111/58 95 03/20/17 01:45 Room Air Intake and Output 03/22/17 03/22/17 03/23/17 15:00 23:00 07:00 Intake Total 50 ml 1100 ml 1050 ml Balance 50 ml 1100 ml 1050 ml Results Result Diagram: 03/23/1751603/23/17516 Results 24 hrs Laboratory Tests Test 03/22/17 12:12 03/22/17 17:23 03/23/17 00:01 03/23/17 01:07 Bedside Glucose 154 138 136 Vancomycin Level Trough 7.3 L Test 03/23/17 05:17 03/23/17 06:12 White Blood Count 10.1 Red Blood Count 4.25 Hemoglobin 12.5 Hematocrit 38.9 Mean Corpuscular Volume 91.5 Mean Corpuscular Hemoglobin 29.4 Mean Corpuscular Hemoglobin Concent 32.1 Red Cell Distribution Width 13.5 Platelet Count 271 Mean Platelet Volume 11.0 H Neutrophils % 55.6 Lymphocytes % 28.6 Monocytes % 9.2 Eosinophils % 5.2 Basophils % 0.5 Nucleated Red Blood Cells % 0.0 Neutrophils # 5.6 Lymphocytes # 2.9 Monocytes # 0.9 Eosinophils # 0.5 Basophils # 0.1 Nucleated Red Blood Cells # 0.0 Sodium Level 144 Potassium Level 3.9 Chloride Level 110 Carbon Dioxide Level 30 Anion Gap 8 Blood Urea Nitrogen 18 Creatinine 0.66 Glucose Level 139 Calcium Level 9.5 Bedside Glucose 144 Medications Medications Current Medications Cefepime HCl (Maxipime 1gm/50 ml (Pmx)) 50 ml @ 100 mls/hr Q12 IVPB Last administered on 03/22/17t 20:35; Admin Dose 100 MLS/HR; Start 11/22/17 at 09: 00 Diagnostic Test (Pha) (Accu-Chek) 1 ea Q6 XX Last administered on 03/22/17 17 :23; Admin Dose 1 EA; Start 03/20/17 at 06:00 Miscellaneous Information (Pending [facility] Order For Wound Care) This patient torres... PRN PRN XX WOUND CARE; Start 03/20/17 at 04:30 Miscellaneous Information 1 ea NOTE XX ; Start 03/20/17 at 05:00 Glucose (Glutose) 15 gm Q15M PRN PO DECREASED GLUCOSE; Start 03/20/17 at 05:00 Glucose (Glutose) 22.5 gm Q15M PRN PO DECREASED GLUCOSE; Start 03/20/17 at 05: 00 Dextrose (D50w Syringe) 25 ml Q15M PRN IV DECREASED GLUCOSE; Start 03/20/17 at 05:00 Dextrose (D50w Syringe) 50 ml Q15M PRN IV DECREASED GLUCOSE; Start 03/20/17 at 05:00 Glucagon (Glucagen) 1 mg Q15M PRN IM DECREASED GLUCOSE; Start 03/20/17 at 05: 00 Glucose (Glutose) 15 gm Q15M PRN BUCCAL DECREASED GLUCOSE; Start 03/20/17 at 05:00 Insulin Aspart (Novolog Insulin Pen) NOVOLOG *MODERATE* ALGORI... Q6 SC Last administered on 03/23/17 06:15; Admin Dose 2 UNIT; Start 03/20/17 at 06:00 Amlodipine Besylate (Norvasc) 2.5 mg BID PO Last administered on 03/22/17 20: 36; Admin Dose 2.5 MG; Start 03/20/17 at 09:00 Ascorbic Acid (Vitamin C) 500 mg DAILY PO Last administered on 03/22/17 08:18 ; Admin Dose 500 MG; Start 03/20/17 at 09:00 Levetiracetam (Keppra Liquid) 500 mg BID GTB Last administered on 03/22/17 20 :35; Admin Dose 500 MG; Start 03/20/17 at 09:00 Lisinopril (Zestril) 20 mg DAILY PO Last administered on 03/22/17 08:19; Admin Dose 20 MG; Start 03/20/17 at 09:00 Tramadol HCl (Ultram) 50 mg Q6H PRN GTB PAIN Last administered on 03/22/17 12 :14; Admin Dose 50 MG; Start 03/20/17 at 07:00 Collagenase 1 applic 1 applic DAILY TOP Last administered on 03/22/17 09:00; Admin Dose 1 APPLIC; Start 03/22/17 at 09:00 Vancomycin HCl/ Dextrose/Water (Vancocin/D5W) 150 ml @ 75 mls/hr Q12H IVPB ; Start 03/23/17 at 15:00 JUNIOR BAKER MD Mar 23, 2017 08:07
[2017-03-23] MEDS: CEFEPIME 1GM/50 ML (PMX) 50 ML IVPB SCH (09:44)
[2017-03-23] MEDS: AMLODIPINE 2.5 MG TAB PO SCH ×2 (09:45→20:39)
[2017-03-23] MEDS: LEVETIRACETAM (100 MG/ML) 5ML CUP GTB SCH ×2 (09:45→20:37)
[2017-03-23] MEDS: LISINOPRIL 20 MG TAB PO SCH (09:45)
[2017-03-23] MEDS: ASCORBIC ACID 500 MG TAB PO SCH (09:45)
[2017-03-23] MEDS: COLLAGENASE 30 GM TUBE TOP SCH (09:46)
--- NOTE | 2017-03-23 09:48 | PN ---
Date/Time of Note Date/Time of Note DATE: 03/23/17 TIME: 09:45 Assessment/Plan VTE Prophylaxis VTE Prophylaxis Intervention: SCD's Lines/Catheters IV Catheter Type (from [facility] Saline Lock Urinary Cath still in place: No Assessment/Plan Chief Complaint/Hosp Course Assessment and plan 1. Left foot heel decubitus ulcer. podiatry following.x-ray left foot showed: Cortical loss with focal osteopenia of the posterior and inferior os calcis concerning for osteomyelitis. continue with wound care and abx. plan for picc line MRI of left foot is pending 2. Diabetes. Continue insulin regimen. Will adjust as need. 3. Suspect history of seizure. Continue Keppra 4. Hypertension. Continue on antihypertensives. Adjust as needed. 5..Dementia. Continue with aspiration and fall precautions Disposition plan: Continue antibiotics. continue wound care. picc line ordered. follow up with podiatry Discussed plan of care with Dr. Velarde Problems: Subjective 24 Hr Interval Summary Free Text/Dictation no apparent distress. nonverbal. no s/s of distress Exam/Review of Systems Vital Signs Vitals Vital Signs Date Time Temp Pulse Resp B/P Pulse Ox O2 Delivery O2 Flow Rate FiO2 03/23/17 08:02 98.0 85 20 111/58 95 03/20/17 01:45 Room Air Intake and Output 03/22/17 03/22/17 03/23/17 15:00 23:00 07:00 Intake Total 50 ml 1100 ml 1050 ml Balance 50 ml 1100 ml 1050 ml Exam Constitutional: alert (confused at baseline ) no s/s of distress Psych: no complaints Head: normocephalic Eyes: nl conjunctiva Neck: non-tender, supple Respiratory: clear to auscultation Cardiovascular: nl pulses, regular rate and rhythm Gastrointestinal: non-tender, soft Musculoskeletal: nl extremities to inspection 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5 Nucleated Red Blood Cells % 0.0 Neutrophils # 5.6 Lymphocytes # 2.9 Monocytes # 0.9 Eosinophils # 0.5 Basophils # 0.1 Nucleated Red Blood Cells # 0.0 Sodium Level 144 Potassium Level 3.9 Chloride Level 110 Carbon Dioxide Level 30 Anion Gap 8 Blood Urea Nitrogen 18 Creatinine 0.66 Glucose Level 139 Calcium Level 9.5 Bedside Glucose 144 Medications Medications Current Medications Cefepime HCl (Maxipime 1gm/50 ml (Pmx)) 50 ml @ 100 mls/hr Q12 IVPB Last administered on 03/22/17 20:35; Admin Dose 100 MLS/HR; Start 03/20/17 at 09: 00 Diagnostic Test (Pha) (Accu-Chek) 1 ea Q6 XX Last administered on 03/22/17 17 :23; Admin Dose 1 EA; Start 03/20/17 at 06:00 Miscellaneous Information (Pending [facility] Order For Wound Care) This patient torres... PRN PRN XX WOUND CARE; Start 03/20/17 at 04:30 Miscellaneous Information 1 ea NOTE XX ; Start 03/20/17 at 05:00 Glucose (Glutose) 15 gm Q15M PRN PO DECREASED GLUCOSE; Start 03/20/17 at 05:00 Glucose (Glutose) 22.5 gm Q15M PRN PO DECREASED GLUCOSE; Start 03/20/17 at 05: 00 Dextrose (D50w Syringe) 25 ml Q15M PRN IV DECREASED GLUCOSE; Start 03/20/17 at 05:00 Dextrose (D50w Syringe) 50 ml Q15M PRN IV DECREASED GLUCOSE; Start 03/20/17 at 05:00 Glucagon (Glucagen) 1 mg Q15M PRN IM DECREASED GLUCOSE; Start 03/20/17 at 05: 00 Glucose (Glutose) 15 gm Q15M PRN BUCCAL DECREASED GLUCOSE; Start 03/20/17 at 05:00 Insulin Aspart (Novolog Insulin Pen) NOVOLOG *MODERATE* ALGORI... Q6 SC Last administered on 03/23/17 06:15; Admin Dose 2 UNIT; Start 03/20/17 at 06:00 Amlodipine Besylate (Norvasc) 2.5 mg BID PO Last administered on 03/22/17 20: 36; Admin Dose 2.5 MG; Start 03/20/17 at 09:00 Ascorbic Acid (Vitamin C) 500 mg DAILY PO Last administered on 03/22/17 08:18 ; Admin Dose 500 MG; Start 03/20/17 at 09:00 Levetiracetam (Keppra Liquid) 500 mg BID GTB Last administered on 03/22/17 20 :35; Admin Dose 500 MG; Start 03/20/17 at 09:00 Lisinopril (Zestril) 20 mg DAILY PO Last administered on 03/22/17 08:19; Admin Dose 20 MG; Start 03/20/17 at 09:00 Tramadol HCl (Ultram) 50 mg Q6H PRN GTB PAIN Last administered on 03/22/17 12 :14; Admin Dose 50 MG; Start 03/20/17 at 07:00 Collagenase 1 applic 1 applic DAILY TOP Last administered on 03/22/17 09:00; Admin Dose 1 APPLIC; Start 03/22/17 at 09:00 Vancomycin HCl/ Dextrose/Water (Vancocin/D5W) 150 ml @ 75 mls/hr Q12H IVPB ; Start 03/23/17 at 15:00 MARY KAY CORONADO Mar 23, 2017 09:48
[2017-03-23] MEDS: HEPARIN 5,000 UNIT/0.5 ML VIAL SC SCH ×2 (10:59→20:38)
--- NOTE | 2017-03-23 11:09 | CONS ---
Date/Time of Note Date/Time of Note DATE: 03/23/17 TIME: 10:47 Assessment/Plan Assessment/Plan Additional Assessment/Plan - Left diabetic foot ulcer infection, stage 3, with likely osteomyelitis as suggested on X-ray GRAM STAIN Final POLYMORPH. LEUKOCYTE NONE SEEN NO ORGANISM SEEN WOUND CULTURE Preliminary Organism 1 MORGANELLA MORGANII SSP MORG. QUANTITY 1+ Organism 2 PROTEUS MIRABILIS QUANTITY 1+ Organism 3 STREPTOCOCCUS SPECIES QUANTITY ISOLATED FROM BROTH ONLY Organism 4 STAPHYLOCOCCUS SPECIES QUANTITY ISOLATED FROM BROTH ONLY - Add Rocephin, - Strep/Staph sensitivity pending - T2DM - Hgb A1c 5.9% - PVD - CAD - HTN - H/o CVA - Dementia - Dysphagia s/p PEG - GERD - Anxiety Recommendations: - Continue vancomycin and cefepime; - Add Rocephin, - Strep/Staph sensitivity pending - will adjust abx based on final cx results - wound cx (prelim: Morganella morganii+GNR), blood cx (NTD) - probiotics - we recommend PICC line for alf IV abx; plan for 6 weeks - continue local wound care as recommended by Podiatry Management d/w HORTENSIA Dean and Dr. Douglass Consultation Date/Type/Reason Admit Date/Time Mar 22, 2017 at 19:02 Initial Consult Date 03/21/17 Type of Consultation: Infectious Disease Referring Provider: MARY KAY CORONADO 24 HR Interval Summary Free Text/Dictation - Afebrile, wbc wnl -Patient will get PICC line per primary -X-ray concerning for OM; -MRI ordered but unable to reach family to get MRI screening completed per d/w nursing. Unable to perform ROS d/t baseline dementia/pt non-verbal. Subjective hx not possible: pt non-verbal Exam/Review of Systems Vital Signs Vitals Vital Signs Date Time Temp Pulse Resp B/P Pulse Ox O2 Delivery O2 Flow Rate FiO2 03/23/17 08:02 98.0 85 20 111/58 95 03/20/17 01:45 Room Air Intake and Output 03/22/17 03/22/17 03/23/17 15:00 23:00 07:00 Intake Total 50 ml 1100 ml 1050 ml Balance 50 ml 1100 ml 1050 ml Exam Constitutional: alert, non-verbal Respiratory: diminished breath sounds Cardiovascular: nl pulses, other (S1-S2) Gastrointestinal: soft Musculoskeletal: other (Left foot diabetic ulcer dressing-clean dry and intact) Extremities: normal pulses Neurological: other (non verbal) Results Result Diagram: 03/23/1751603/23/17516 Results 24 hrs Laboratory Tests Test 03/22/17 12:12 03/22/17 17:23 03/23/17 00:01 03/23/17 01:07 Bedside Glucose 154 138 136 Vancomycin Level Trough 7.3 L Test 03/23/17 05:17 03/23/17 06:12 White Blood Count 10.1 Red Blood Count 4.25 Hemoglobin 12.5 Hematocrit 38.9 Mean Corpuscular Volume 91.5 Mean Corpuscular Hemoglobin 29.4 Mean Corpuscular Hemoglobin Concent 32.1 Red Cell Distribution Width 13.5 Platelet Count 271 Mean Platelet Volume 11.0 H Neutrophils % 55.6 Lymphocytes % 28.6 Monocytes % 9.2 Eosinophils % 5.2 Basophils % 0.5 Nucleated Red Blood Cells % 0.0 Neutrophils # 5.6 Lymphocytes # 2.9 Monocytes # 0.9 Eosinophils # 0.5 Basophils # 0.1 Nucleated Red Blood Cells # 0.0 Sodium Level 144 Potassium Level 3.9 Chloride Level 110 Carbon Dioxide Level 30 Anion Gap 8 Blood Urea Nitrogen 18 Creatinine 0.66 Glucose Level 139 Calcium Level 9.5 Bedside Glucose 144 Medications Medications Current Medications Cefepime HCl (Maxipime 1gm/50 ml (Pmx)) 50 ml @ 100 mls/hr Q12 IVPB Last administered on 03/23/17 09:44; Admin Dose 100 MLS/HR; Start 03/20/17 at 09: 00 Diagnostic Test (Pha) (Accu-Chek) 1 ea Q6 XX Last administered on 03/22/17 17 :23; Admin Dose 1 EA; Start 03/20/17 at 06:00 Miscellaneous Information (Pending [facility]yl Order For Wound Care) This patient torres... PRN PRN XX WOUND CARE; Start 03/20/17 at 04:30 Miscellaneous Information 1 ea NOTE XX ; Start 03/20/17 at 05:00 Glucose (Glutose) 15 gm Q15M PRN PO DECREASED GLUCOSE; Start 03/20/17 at 05:00 Glucose (Glutose) 22.5 gm Q15M PRN PO DECREASED GLUCOSE; Start 03/20/17 at 05: 00 Dextrose (D50w Syringe) 25 ml Q15M PRN IV DECREASED GLUCOSE; Start 03/20/17 at 05:00 Dextrose (D50w Syringe) 50 ml Q15M PRN IV DECREASED GLUCOSE; Start 03/20/17 at 05:00 Glucagon (Glucagen) 1 mg Q15M PRN IM DECREASED GLUCOSE; Start 03/20/17 at 05: 00 Glucose (Glutose) 15 gm Q15M PRN BUCCAL DECREASED GLUCOSE; Start 03/20/17 at 05:00 Insulin Aspart (Novolog Insulin Pen) NOVOLOG *MODERATE* ALGORI... Q6 SC Last administered on 03/23/17 06:15; Admin Dose 2 UNIT; Start 03/20/17 at 06:00 Amlodipine Besylate (Norvasc) 2.5 mg BID PO Last administered on 03/23/17 09: 45; Admin Dose 2.5 MG; Start 03/20/17 at 09:00 Ascorbic Acid (Vitamin C) 500 mg DAILY PO Last administered on 03/23/17 09:45 ; Admin Dose 500 MG; Start 03/20/17 at 09:00 Levetiracetam (Keppra Liquid) 500 mg BID GTB Last administered on 03/23/17 09 :45; Admin Dose 500 MG; Start 03/20/17 at 09:00 Lisinopril (Zestril) 20 mg DAILY PO Last administered on 03/23/17 09:45; Admin Dose 20 MG; Start 03/20/17 at 09:00 Tramadol HCl (Ultram) 50 mg Q6H PRN GTB PAIN Last administered on 03/22/17 12 :14; Admin Dose 50 MG; Start 03/20/17 at 07:00 Collagenase 1 applic 1 applic DAILY TOP Last administered on 03/23/17 09:46; Admin Dose 1 APPLIC; Start 03/22/17 at 09:00 Vancomycin HCl/ Dextrose/Water (Vancocin/D5W) 150 ml @ 75 mls/hr Q12H IVPB ; Start 03/23/17 at 15:00 Heparin Sodium (Porcine) (Heparin (5000 Units/0.5 ml)) 5,000 unit BID SC ; Start 03/23/17 at 10:00 Miscellaneous Information (*Rx Drug Level Order Reminder*) VANCOMYCIN TROUGH AT 1400 ONCE ONCE XX ; Start 03/24/17 at 14:00; Stop 03/24/17 at 14:01 LORENZA TADEO Mar 23, 2017 10:57
[2017-03-23] MEDS: CEFTRIAXONE 1 GM/50 ML (PMX) 50 ML IVPB SCH (12:30)
[2017-03-23 15:28] VITALS: BP 115/70; RESP 20
[2017-03-23 20:00] VITALS: BP 148/68; RESP 19
[2017-03-24] MEDS: INSULIN ASPART [NOVOLOG] 3 ML PEN SC SCH ×6 (01:05→17:14)
[2017-03-24 02:00] VITALS: BP 128/70; RESP 19
[2017-03-24] MEDS: VANCOMYCIN 750 MG in DEXTROSE 5% 150 ML IVPB SCH ×2 (03:23→14:55)
[2017-03-24 05:41] LABS: BASOPHIL # 0.1 10^3/ul (0.0-0.1); BASOPHILS % 0.6 % (0.0-2.0); EOSINOPHILS # 0.5 10^3/ul (0.0-0.5); EOSINOPHILS % 5.1 % (0.0-7.0); HEMATOCRIT 37.2 % (37.0-47.0); HEMOGLOBIN 12.3 g/dl (12.0-16.0); LYMPHOCYTES # 2.2 10^3/ul (0.8-2.9); LYMPHOCYTES % 22.3 % (15.0-51.0); MEAN CORPUSCULAR HEMOGLOBIN 30.4 pg (29.0-33.0); MEAN CORPUSCULAR HGB CONC 33.1 g/dl (32.0-37.0); MEAN CORPUSCULAR VOLUME 91.9 fl (82.0-101.0); MEAN PLATELET VOLUME 10.7 fl (7.4-10.4); MONOCYTE # 0.8 10^3/ul (0.3-0.9); MONOCYTES % 8.1 % (0.0-11.0); NEUTROPHIL # 6.3 10^3/ul (1.6-7.5); NEUTROPHILS % 63.3 % (39.0-77.0); PLATELET COUNT 278 10^3/UL (140-415); RED BLOOD COUNT 4.05 10^6/ul (4.20-5.40); RED CELL DISTRIBUTION WIDTH 13.4 % (11.5-14.5)
[2017-03-24] MEDS: ACCU-CHEK XX SCH ×4 (05:57→17:14)
[2017-03-24] MEDS: LEVOTHYROXINE 100 MCG TAB PO SCH (06:00)
[2017-03-24 06:25] LABS: CALCIUM 9.5 mg/dl (8.4-10.2); CREATININE 0.67 mg/dl (0.44-1.00); POTASSIUM 3.9 mmol/L (3.5-5.1)
[2017-03-24 08:05] VITALS: BP 130/70; RESP 19
[2017-03-24] MEDS: LISINOPRIL 20 MG TAB PO SCH (08:44)
[2017-03-24] MEDS: LEVETIRACETAM (100 MG/ML) 5ML CUP GTB SCH ×2 (08:44→21:21)
[2017-03-24] MEDS: ASCORBIC ACID 500 MG TAB PO SCH (08:44)
[2017-03-24] MEDS: AMLODIPINE 2.5 MG TAB PO SCH ×2 (08:44→21:24)
[2017-03-24] MEDS: HEPARIN 5,000 UNIT/0.5 ML VIAL SC SCH ×2 (08:45→21:23)
[2017-03-24] MEDS: COLLAGENASE 30 GM TUBE TOP SCH (08:46)
--- NOTE | 2017-03-24 10:06 | PN ---
Date/Time of Note Date/Time of Note DATE: 03/24/17 TIME: 09:57 Assessment/Plan VTE Prophylaxis VTE Prophylaxis Intervention: heparin Lines/Catheters IV C[facility]ter Type (from [facility] Saline Lock Urinary Cath still in place: No Assessment/Plan Chief Complaint/Hosp Course Assessment and plan 1. Left foot heel decubitus ulcer. podiatry following.x-ray left foot showed: Cortical loss with focal osteopenia of the posterior and inferior os calcis concerning for osteomyelitis. continue with wound care and abx. MRI of left foot is pending 2. Diabetes. Continue insulin regimen. 3. Suspect history of seizure. Continue Keppra 4. Hypertension. Continue on antihypertensives. Adjust as needed. 5..Dementia. Continue with aspiration and fall precautions Disposition plan: Continue antibiotics. continue wound care.Podiatry recommendations pending. Will follow up. DC when cleared by consultants Discussed plan of care with Dr. Velarde Problems: Subjective 24 Hr Interval Summary Free Text/Dictation Remains nonverbal. No signs of distress at this time. 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) Skin: nl turgor Results Result Diagram: 03/24/17 0459 03/24/17 0459 Results 24 hrs Laboratory Tests Test 03/23/17 12:29 03/23/17 17:49 03/24/17 00:52 03/24/17 04:59 Bedside Glucose 153 167 141 White Blood Count 10.0 Red Blood Count 4.05 L Hemoglobin 12.3 Hematocrit 37.2 Mean Corpuscular Volume 91.9 Mean Corpuscular Hemoglobin 30.4 Mean Corpuscular Hemoglobin Concent 33.1 Red Cell Distribution Width 13.4 Platelet Count 278 Mean Platelet Volume 10.7 H Neutrophils % 63.3 Lymphocytes % 22.3 Monocytes % 8.1 Eosinophils % 5.1 Basophils % 0.6 Nucleated Red Blood Cells % 0.0 Neutrophils # 6.3 Lymphocytes # 2.2 Monocytes # 0.8 Eosinophils # 0.5 Basophils # 0.1 Nucleated Red Blood Cells # 0.0 Sodium Level 144 Potassium Level 3.9 Chloride Level 109 Carbon Dioxide Level 31 Anion Gap 8 Blood Urea Nitrogen 19 Creatinine 0.67 Glucose Level 147 Calcium Level 9.5 Test 03/24/17 05:55 Bedside Glucose 155 Medications Medications Current Medications Diagnostic Test (Pha) (Accu-Chek) 1 ea Q6 XX Last administered on 03/22/17 17 :23; Admin Dose 1 EA; Start 03/20/17 at 06:00 Miscellaneous Information (Pending [facility] Order For Wound Care) This patient torres... PRN PRN XX WOUND CARE; Start 03/20/17 at 04:30 Miscellaneous Information 1 ea NOTE XX ; Start 03/20/17 at 05:00 Glucose (Glutose) 15 gm Q15M PRN PO DECREASED GLUCOSE; Start 03/20/17 at 05:00 Glucose (Glutose) 22.5 gm Q15M PRN PO DECREASED GLUCOSE; Start 03/20/17 at 05: 00 Dextrose (D50w Syringe) 25 ml Q15M PRN IV DECREASED GLUCOSE; Start 03/20/17 at 05:00 Dextrose (D50w Syringe) 50 ml Q15M PRN IV DECREASED GLUCOSE; Start 03/20/17 at 05:00 Glucagon (Glucagen) 1 mg Q15M PRN IM DECREASED GLUCOSE; Start 03/20/17 at 05: 00 Glucose (Glutose) 15 gm Q15M PRN BUCCAL DECREASED GLUCOSE; Start 03/20/17 at 05:00 Insulin Aspart (Novolog Insulin Pen) NOVOLOG *MODERATE* ALGORI... Q6 SC Last administered on 03/24/17 06:23; Admin Dose 2 UNIT; Start 03/20/17 at 06:00 Amlodipine Besylate (Norvasc) 2.5 mg BID PO Last administered on 03/24/17 08: 44; Admin Dose 2.5 MG; Start 03/20/17 at 09:00 Ascorbic Acid (Vitamin C) 500 mg DAILY PO Last administered on 03/24/17 08:44 ; Admin Dose 500 MG; Start 03/20/17 at 09:00 Levetiracetam (Keppra Liquid) 500 mg BID GTB Last administered on 03/24/17 08 :44; Admin Dose 500 MG; Start 03/20/17 at 09:00 Lisinopril (Zestril) 20 mg DAILY PO Last administered on 03/24/17 08:44; Admin Dose 20 MG; Start 03/20/17 at 09:00 Tramadol HCl (Ultram) 50 mg Q6H PRN GTB PAIN Last administered on 03/22/17 12 :14; Admin Dose 50 MG; Start 03/20/17 at 07:00 Collagenase 1 applic 1 applic DAILY TOP Last administered on 03/24/17 08:46; Admin Dose 1 APPLIC; Start 03/22/17 at 09:00 Vancomycin HCl/ Dextrose/Water (Vancocin/D5W) 150 ml @ 75 mls/hr Q12H IVPB Last administered on 03/24/17 03:23; Admin Dose 75 MLS/HR; Start 03/23/17 at 15:00 Heparin Sodium (Porcine) (Heparin (5000 Units/0.5 ml)) 5,000 unit BID SC Last administered on 03/24/17 08:45; Admin Dose 5,000 UNIT; Start 03/23/17 at 10: 00 Miscellaneous Information VANCOMYCIN TROUGH AT 1400 ONCE ONCE XX ; Start 03/24/17 at 14:00; Stop 03/24/17 at 14:01 Ceftriaxone Sodium (Rocephin) 50 ml @ 100 mls/hr Q24H IVPB Last administered on 03/23/17 12:30; Admin Dose 100 MLS/HR; Start 03/23/17 at 12:00 MARY KAY CROONADO Mar 24, 2017 10:06
[2017-03-24] MEDS: traMADol 50 MG TAB GTB PRN (11:17)
[2017-03-24] MEDS: CEFTRIAXONE 1 GM/50 ML (PMX) 50 ML IVPB SCH (11:18)
--- NOTE | 2017-03-24 13:10 | CONS ---
Date/Time of Note Date/Time of Note DATE: 03/24/17 TIME: 11:25 Assessment/Plan Assessment/Plan Additional Assessment/Plan - Left diabetic foot ulcer infection, stage 3, with likely osteomyelitis as suggested on X-ray GRAM STAIN Final POLYMORPH. LEUKOCYTE NONE SEEN NO ORGANISM SEEN WOUND CULTURE Preliminary Organism 1 MORGANELLA MORGANII SSP MORG. QUANTITY 1+ Organism 2 PROTEUS MIRABILIS QUANTITY 1+ Organism 3 STREPTOCOCCUS SPECIES QUANTITY ISOLATED FROM BROTH ONLY Organism 4 STAPHYLOCOCCUS SPECIES QUANTITY ISOLATED FROM BROTH ONLY - ON Vanco, Ceftriaxone , cefepime, Strep/Staph sensitivity pending- lab was called org #3, #4, #5 were done. Lab was called again to further identify Org # [address] Douglass[address] Will keep patient on Vanco, Ceftriaxone, Cefepime in mean time. - T2DM - Hgb A1c 5.9% - PVD - CAD - HTN - H/o CVA - Dementia - Dysphagia s/p PEG - GERD - Anxiety d/o Recommendations: - ON Vanco, Ceftriaxone , cefepime, Strep/Staph sensitivity pending- lab was called org #3, #4, #5 were done. Lab was called again to further identify Org # [address] Douglass. Will keep patient on Vanco, Ceftriaxone, Cefepime in mean time. 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 Douglass Consultation Date/Type/Reason Admit Date/Time Mar 22, 2017 at 19:02 Initial Consult Date 03/21/17 Type of Consultation: Infectious Disease Referring Provider: MARY KAY CORONADO 24 HR Interval Summary Free Text/Dictation alert, afebrile, WBC wnl - ON Vanco, Rocephin- Strep/Staph sensitivity pending. dw staff Subjective hx not possible: pt non-verbal Constitutional: requiring O2 Exam/Review of Systems Vital Signs Vitals Vital Signs Date Time Temp Pulse Resp B/P Pulse Ox O2 Delivery O2 Flow Rate FiO2 03/24/17 08:05 98.6 79 19 130/70 96 Intake and Output 03/23/17 03/23/17 03/24/17 15:00 23:00 07:00 Intake Total 100 ml 1050 ml 150 ml Balance 100 ml 1050 ml 150 ml Exam Constitutional: alert Respiratory: diminished breath sounds Cardiovascular: nl pulses, other (s1s2) Gastrointestinal: non-tender, soft Musculoskeletal: nl extremities to inspection Extremities: normal pulses Neurological: confused Results Result Diagram: 03/24/17 0459 03/24/17 0459 Results 24 hrs Laboratory Tests Test 03/23/17 12:29 03/23/17 17:49 03/24/17 00:52 03/24/17 04:59 Bedside Glucose 153 167 141 White Blood Count 10.0 Red Blood Count 4.05 L Hemoglobin 12.3 Hematocrit 37.2 Mean Corpuscular Volume 91.9 Mean Corpuscular Hemoglobin 30.4 Mean Corpuscular Hemoglobin Concent 33.1 Red Cell Distribution Width 13.4 Platelet Count 278 Mean Platelet Volume 10.7 H Neutrophils % 63.3 Lymphocytes % 22.3 Monocytes % 8.1 Eosinophils % 5.1 Basophils % 0.6 Nucleated Red Blood Cells % 0.0 Neutrophils # 6.3 Lymphocytes # 2.2 Monocytes # 0.8 Eosinophils # 0.5 Basophils # 0.1 Nucleated Red Blood Cells # 0.0 Sodium Level 144 Potassium Level 3.9 Chloride Level 109 Carbon Dioxide Level 31 Anion Gap 8 Blood Urea Nitrogen 19 Creatinine 0.67 Glucose Level 147 Calcium Level 9.5 Test 03/24/17 05:55 Bedside Glucose 155 Medications Medications Current Medications Diagnostic Test (Pha) (Accu-Chek) 1 ea Q6 XX Last administered on 03/22/17t 17 :23; Admin Dose 1 EA; Start 03/20/17 at 06:00 Miscellaneous Information (Pending [facility] Order For Wound Care) This patient torres... PRN PRN XX WOUND CARE; Start 03/20/17 at 04:30 Miscellaneous Information 1 ea NOTE XX ; Start 03/20/17 at 05:00 Glucose (Glutose) 15 gm Q15M PRN PO DECREASED GLUCOSE; Start 03/20/17 at 05:00 Glucose (Glutose) 22.5 gm Q15M PRN PO DECREASED GLUCOSE; Start 03/20/17 at 05: 00 Dextrose (D50w Syringe) 25 ml Q15M PRN IV DECREASED GLUCOSE; Start 03/20/17 at 05:00 Dextrose (D50w Syringe) 50 ml Q15M PRN IV DECREASED GLUCOSE; Start 03/20/17 at 05:00 Glucagon (Glucagen) 1 mg Q15M PRN IM DECREASED GLUCOSE; Start 03/20/17 at 05: 00 Glucose (Glutose) 15 gm Q15M PRN BUCCAL DECREASED GLUCOSE; Start 03/20/17 at 05:00 Insulin Aspart (Novolog Insulin Pen) NOVOLOG *MODERATE* ALGORI... Q6 SC Last administered on 03/24/17 06:23; Admin Dose 2 UNIT; Start 03/20/17 at 06:00 Amlodipine Besylate (Norvasc) 2.5 mg BID PO Last administered on 03/24/17 08: 44; Admin Dose 2.5 MG; Start 03/20/17 at 09:00 Ascorbic Acid (Vitamin C) 500 mg DAILY PO Last administered on 03/24/17 08:44 ; Admin Dose 500 MG; Start 03/20/17 at 09:00 Levetiracetam (Keppra Liquid) 500 mg BID GTB Last administered on 03/24/17 08 :44; Admin Dose 500 MG; Start 03/20/17 at 09:00 Lisinopril (Zestril) 20 mg DAILY PO Last administered on 03/24/17 08:44; Admin Dose 20 MG; Start 03/20/17 at 09:00 Tramadol HCl (Ultram) 50 mg Q6H PRN GTB PAIN Last administered on 03/24/17 11 :17; Admin Dose 50 MG; Start 03/20/17 at 07:00 Collagenase 1 applic 1 applic DAILY TOP Last administered on 03/24/17 08:46; Admin Dose 1 APPLIC; Start 03/22/17 at 09:00 Vancomycin HCl/ Dextrose/Water (Vancocin/D5W) 150 ml @ 75 mls/hr Q12H IVPB Last administered on 03/24/17 03:23; Admin Dose 75 MLS/HR; Start 03/23/17 at 15:00 Heparin Sodium (Porcine) (Heparin (5000 Units/0.5 ml)) 5,000 unit BID SC Last administered on 03/24/17 08:45; Admin Dose 5,000 UNIT; Start 03/23/17 at 10: 00 Miscellaneous Information VANCOMYCIN TROUGH AT 1400 ONCE ONCE XX ; Start 03/24/17 at 14:00; Stop 03/24/17 at 14:01 Ceftriaxone Sodium (Rocephin) 50 ml @ 100 mls/hr Q24H IVPB Last administered on 03/24/17t 11:18; Admin Dose 100 MLS/HR; Start 03/23/17 at 12:00 LORENZA TADEO Mar 24, 2017 11:35
[2017-03-24 14:49] VITALS: BP 115/75; RESP 18
[2017-03-24 19:54] VITALS: BP 123/59; RESP 18
[2017-03-25 02:13] VITALS: BP 125/58; RESP 18
[2017-03-25] MEDS: ACCU-CHEK XX SCH ×4 (02:14→17:09)
[2017-03-25] MEDS: VANCOMYCIN 750 MG in DEXTROSE 5% 150 ML IVPB SCH ×2 (03:08→16:08)
[2017-03-25] MEDS: INSULIN ASPART [NOVOLOG] 3 ML PEN SC SCH ×4 (05:44→17:09)
[2017-03-25] MEDS: LEVOTHYROXINE 100 MCG TAB PO SCH (06:15)
[2017-03-25 06:37] LABS: BASOPHIL # 0.1 10^3/ul (0.0-0.1); BASOPHILS % 0.4 % (0.0-2.0); EOSINOPHILS # 0.5 10^3/ul (0.0-0.5); EOSINOPHILS % 4.2 % (0.0-7.0); HEMOGLOBIN 12.3 g/dl (12.0-16.0); LYMPHOCYTES # 2.3 10^3/ul (0.8-2.9); MEAN CORPUSCULAR HEMOGLOBIN 29.9 pg (29.0-33.0); MEAN CORPUSCULAR HGB CONC 32.4 g/dl (32.0-37.0); MEAN CORPUSCULAR VOLUME 92.5 fl (82.0-101.0); MONOCYTES % 8.4 % (0.0-11.0); NEUTROPHIL # 7.5 10^3/ul (1.6-7.5); NEUTROPHILS % 66.5 % (39.0-77.0); PLATELET COUNT 259 10^3/UL (140-415); RED BLOOD COUNT 4.11 10^6/ul (4.20-5.40); RED CELL DISTRIBUTION WIDTH 13.6 % (11.5-14.5); WHITE BLOOD COUNT 11.3 10^3/ul (4.8-10.8)
[2017-03-25 06:58] LABS: CALCIUM 9.2 mg/dl (8.4-10.2); CREATININE 0.68 mg/dl (0.44-1.00); POTASSIUM 3.8 mmol/L (3.5-5.1)
[2017-03-25 08:00] VITALS: BP 128/66; RESP 18
[2017-03-25] MEDS: traMADol 50 MG TAB GTB PRN ×3 (09:25→18:26)
[2017-03-25] MEDS: LEVETIRACETAM (100 MG/ML) 5ML CUP GTB SCH ×2 (09:25→20:56)
[2017-03-25] MEDS: AMLODIPINE 2.5 MG TAB PO SCH ×2 (09:25→20:57)
[2017-03-25] MEDS: ASCORBIC ACID 500 MG TAB PO SCH (09:25)
[2017-03-25] MEDS: LISINOPRIL 20 MG TAB PO SCH (09:26)
[2017-03-25] MEDS: HEPARIN 5,000 UNIT/0.5 ML VIAL SC SCH ×2 (09:27→20:58)
--- NOTE | 2017-03-25 10:35 | CONS ---
Date/Time of Note Date/Time of Note DATE: 03/25/17 TIME: 10:33 Assessment/Plan Assessment/Plan Chief Complaint/Hosp Course - Left diabetic foot ulcer infection, stage 3, with likely osteomyelitis as suggested on X-ray GRAM STAIN Final POLYMORPH. LEUKOCYTE NONE SEEN NO ORGANISM SEEN WOUND CULTURE Preliminary Organism 1 MORGANELLA MORGANII SSP MORG. QUANTITY 1+ Organism 2 PROTEUS MIRABILIS QUANTITY 1+ Organism 3 STREPTOCOCCUS SPECIES QUANTITY ISOLATED FROM BROTH ONLY Organism 4 STAPHYLOCOCCUS SPECIES QUANTITY ISOLATED FROM BROTH ONLY - ON Vanco, Ceftriaxone Strep/Staph sensitivity pending- lab was called org #3, #4, #5 were done. Lab was clled again to father identify Org # [address] Douglass. Will keep patient on Vanco, Ceftriaxone in mean time. - T2DM - Hgb A1c 5.9% - PVD - CAD - HTN - H/o CVA - Dementia - Dysphagia s/p PEG - GERD - Anxiety d/o Recommendations: - Continue vancomycin and ctx x 6 weeks - monitor crcl - probiotics Problems: Consultation Date/Type/Reason Admit Date/Time Mar 22, 2017 at 19:02 Initial Consult Date 03/21/17 Type of Consultation: Infectious Disease Referring Provider: MARY KAY CORONADO 24 HR Interval Summary Free Text/Dictation c/o pain Exam/Review of Systems Vital Signs Vitals Vital Signs Date Time Temp Pulse Resp B/P Pulse Ox O2 Delivery O2 Flow Rate FiO2 03/25/17 08:00 98.0 75 18 128/66 94 Intake and Output 03/24/17 03/24/17 03/25/17 15:00 23:00 07:00 Intake Total 50 ml 150 ml 1050 ml Balance 50 ml 150 ml 1050 ml Exam Constitutional: alert, oriented, well developed Psych: anxiety Eyes: EOMI, nl conjunctiva Respiratory: clear to auscultation, normal air movement Cardiovascular: regular rate and rhythm Gastrointestinal: soft Results Result Diagram: 03/25/17 0457 03/25/17 0457 Results 24 hrs Laboratory Tests Test 03/24/17 11:39 03/24/17 13:53 03/24/17 16:58 03/25/17 00:28 Bedside Glucose 130 155 126 Vancomycin Level Trough 15.9 Test 03/25/17 04:57 03/25/17 05:37 White Blood Count 11.3 H Red Blood Count 4.11 L Hemoglobin 12.3 Hematocrit 38.0 Mean Corpuscular Volume 92.5 Mean Corpuscular Hemoglobin 29.9 Mean Corpuscular Hemoglobin Concent 32.4 Red Cell Distribution Width 13.6 Platelet Count 259 Mean Platelet Volume 11.0 H Neutrophils % 66.5 Lymphocytes % 20.0 Monocytes % 8.4 Eosinophils % 4.2 Basophils % 0.4 Nucleated Red Blood Cells % 0.0 Neutrophils # 7.5 Lymphocytes # 2.3 Monocytes # 1.0 H Eosinophils # 0.5 Basophils # 0.1 Nucleated Red Blood Cells # 0.0 Sodium Level 141 Potassium Level 3.8 Chloride Level 106 Carbon Dioxide Level 28 Anion Gap 11 Blood Urea Nitrogen 21 H Creatinine 0.68 Glucose Level 158 Calcium Level 9.2 Bedside Glucose 148 Medications Medications Current Medications Diagnostic Test (Pha) (Accu-Chek) 1 ea Q6 XX Last administered on 03/24/17 17 :14; Admin Dose 1 EA; Start 03/20/17 at 06:00 Miscellaneous Information (Pending [facility] Order For Wound Care) This patient torres... PRN PRN XX WOUND CARE; Start 03/20/17 at 04:30 Miscellaneous Information 1 ea NOTE XX ; Start 03/20/17 at 05:00 Glucose (Glutose) 15 gm Q15M PRN PO DECREASED GLUCOSE; Start 03/20/17 at 05:00 Glucose (Glutose) 22.5 gm Q15M PRN PO DECREASED GLUCOSE; Start 03/20/17 at 05: 00 Dextrose (D50w Syringe) 25 ml Q15M PRN IV DECREASED GLUCOSE; Start 03/20/17 at 05:00 Dextrose (D50w Syringe) 50 ml Q15M PRN IV DECREASED GLUCOSE; Start 03/20/17 at 05:00 Glucagon (Glucagen) 1 mg Q15M PRN IM DECREASED GLUCOSE; Start 03/20/17 at 05: 00 Glucose (Glutose) 15 gm Q15M PRN BUCCAL DECREASED GLUCOSE; Start 03/20/17 at 05:00 Insulin Aspart (Novolog Insulin Pen) NOVOLOG *MODERATE* ALGORI... Q6 SC Last administered on 03/25/17 05:44; Admin Dose 2 UNIT; Start 03/20/17 at 06:00 Amlodipine Besylate (Norvasc) 2.5 mg BID PO Last administered on 03/25/17 09: 25; Admin Dose 2.5 MG; Start 03/20/17 at 09:00 Ascorbic Acid (Vitamin C) 500 mg DAILY PO Last administered on 03/25/17 09:25 ; Admin Dose 500 MG; Start 03/20/17 at 09:00 Levetiracetam (Keppra Liquid) 500 mg BID GTB Last administered on 03/25/17 09 :25; Admin Dose 500 MG; Start 03/20/17 at 09:00 Lisinopril (Zestril) 20 mg DAILY PO Last administered on 03/25/17 09:26; Admin Dose 20 MG; Start 03/20/17 at 09:00 Tramadol HCl (Ultram) 50 mg Q6H PRN GTB PAIN Last administered on 03/25/17 09 :25; Admin Dose 50 MG; Start 03/20/17 at 07:00 Collagenase 1 applic 1 applic DAILY TOP Last administered on 03/24/17 08:46; Admin Dose 1 APPLIC; Start 03/22/17 at 09:00 Vancomycin HCl/ Dextrose/Water (Vancocin/D5W) 150 ml @ 75 mls/hr Q12H IVPB Last administered on 03/25/17 03:08; Admin Dose 75 MLS/HR; Start 03/23/17 at 15:00 Heparin Sodium (Porcine) 5000 unit 5,000 unit BID SC Last administered on 03/25 09:27; Admin Dose 5,000 UNIT; Start 03/23/17 at 10:00 Ceftriaxone Sodium (Rocephin) 50 ml @ 100 mls/hr Q24H IVPB Last administered on 03/24/17 11:18; Admin Dose 100 MLS/HR; Start 03/23/17 at 12:00 JUNIOR DOUGLASS MD Mar 25, 2017 10:35
--- NOTE | 2017-03-25 11:34 | PN ---
Date/Time of Note Date/Time of Note DATE: 03/25/17 TIME: 11:34 Assessment/Plan VTE Prophylaxis VTE Prophylaxis Intervention: heparin Lines/Catheters [facility] Saline Lock Urinary Cath still in place: No Assessment/Plan Chief Complaint/Hosp Course 1. Decubitus ulcer of the left heel infected with polymicrobials with underlying osteomyelitis. On antibiotics as per infectious diseases. Status post evaluation by podiatry. 2. Essential hypertension. Continue antihypertensives. 3. Type 2 diabetes mellitus. Hemoglobin A1c 5.9%. Continue sliding scale insulin. 4. Seizure disorder. Continue anticonvulsants. 5. Hypothyroidism. Continue Synthroid. 6. Dysphagia. Status post PEG placement. Continue G-tube feedings. Aspiration precautions. 7. Dementia. Continue supportive care. 8. CAD. The patient was noticed to be not taking any aspirin. Start the patient on aspirin. 9. CVA. Start the patient on aspirin. 10. Fluids, electrolytes, and nutrition. G-tube feedings. 11. DVT prophylaxis with subcutaneous heparin. 12. Plan. Continue antimicrobials as per infectious diseases. Await MRI of the left foot. Await PICC line placement. Case discussed with Dr. Dior. Problems: Subjective 24 Hr Interval Summary Free Text/Dictation Patient remains afebrile. Exam/Review of Systems Vital Signs Vitals Vital Signs Date Time Temp Pulse Resp B/P Pulse Ox O2 Delivery O2 Flow Rate FiO2 03/25/17 08:00 98.0 75 18 128/66 94 Intake and Output 03/24/17 03/24/17 03/25/17 15:00 23:00 07:00 Intake Total 50 ml 150 ml 1050 ml Balance 50 ml 150 ml 1050 ml Exam General: Elderly 86 year-old female lying in bed in no apparent distress. HEENT: Normocephalic, atraumatic. Eyes: Anicteric sclerae, conjunctivae clear. ENT: Nasal septum midline, oral mucosa moist. Neck supple, no JVD noticed. Respiratory: Bilaterally diminished breath sounds. No use of accessory muscles of respiration. No adventitious breath sounds. Cardiovascular: S1, S2 heard. Regular rate and rhythm. Abdomen: Soft, nontender, and nondistended. Bowel sounds positive in all 4 quadrants. Left upper quadrant tube in place Genitourinary: Deferred. Extremities: No cyanosis, no clubbing, no edema. Pedal pulses nonpalpable. Left heel dressing in place. Neurologic: Does not follow commands. Has underlying dementia. . Results Result Diagram: 03/25/17 0457 03/25/177 Results 24 hrs Laboratory Tests Test 03/24/17 11:39 03/24/17 13:53 03/24/17 16:58 03/25/17 00:28 Bedside Glucose 130 155 126 Vancomycin Level Trough 15.9 Test 03/25/17 04:57 03/25/17 05:37 White Blood Count 11.3 H Red Blood Count 4.11 L Hemoglobin 12.3 Hematocrit 38.0 Mean Corpuscular Volume 92.5 Mean Corpuscular Hemoglobin 29.9 Mean Corpuscular Hemoglobin Concent 32.4 Red Cell Distribution Width 13.6 Platelet Count 259 Mean Platelet Volume 11.0 H Neutrophils % 66.5 Lymphocytes % 20.0 Monocytes % 8.4 Eosinophils % 4.2 Basophils % 0.4 Nucleated Red Blood Cells % 0.0 Neutrophils # 7.5 Lymphocytes # 2.3 Monocytes # 1.0 H Eosinophils # 0.5 Basophils # 0.1 Nucleated Red Blood Cells # 0.0 Sodium Level 141 Potassium Level 3.8 Chloride Level 106 Carbon Dioxide Level 28 Anion Gap 11 Blood Urea Nitrogen 21 H Creatinine 0.68 Glucose Level 158 Calcium Level 9.2 Bedside Glucose 148 Medications Medications Current Medications Diagnostic Test (Pha) (Accu-Chek) 1 ea Q6 XX Last administered on 03/24/17t 17 :14; Admin Dose 1 EA; Start 03/20/17 at 06:00 Miscellaneous Information (Pending [facility] Order For Wound Care) This patient torres... PRN PRN XX WOUND CARE; Start 03/20/17 at 04:30 Miscellaneous Information 1 ea NOTE XX ; Start 03/20/17 at 05:00 Glucose (Glutose) 15 gm Q15M PRN PO DECREASED GLUCOSE; Start 03/20/17 at 05:00 Glucose (Glutose) 22.5 gm Q15M PRN PO DECREASED GLUCOSE; Start 03/20/17 at 05: 00 Dextrose (D50w Syringe) 25 ml Q15M PRN IV DECREASED GLUCOSE; Start 03/20/17 at 05:00 Dextrose (D50w Syringe) 50 ml Q15M PRN IV DECREASED GLUCOSE; Start 03/20/17 at 05:00 Glucagon (Glucagen) 1 mg Q15M PRN IM DECREASED GLUCOSE; Start 03/20/17 at 05: 00 Glucose (Glutose) 15 gm Q15M PRN BUCCAL DECREASED GLUCOSE; Start 03/20/17 at 05:00 Insulin Aspart (Novolog Insulin Pen) NOVOLOG *MODERATE* ALGORI... Q6 SC Last administered on 03/25/17 05:44; Admin Dose 2 UNIT; Start 03/20/17 at 06:00 Amlodipine Besylate (Norvasc) 2.5 mg BID PO Last administered on 03/25/17 09: 25; Admin Dose 2.5 MG; Start 03/20/17 at 09:00 Ascorbic Acid (Vitamin C) 500 mg DAILY PO Last administered on 03/25/17 09:25 ; Admin Dose 500 MG; Start 03/20/17 at 09:00 Levetiracetam (Keppra Liquid) 500 mg BID GTB Last administered on 03/25/17 09 :25; Admin Dose 500 MG; Start 03/20/17 at 09:00 Lisinopril (Zestril) 20 mg DAILY PO Last administered on 03/25/17 09:26; Admin Dose 20 MG; Start 03/20/17 at 09:00 Tramadol HCl (Ultram) 50 mg Q6H PRN GTB PAIN Last administered on 03/25/17 09 :25; Admin Dose 50 MG; Start 03/20/17 at 07:00 Collagenase 1 applic 1 applic DAILY TOP Last administered on 03/24/17 08:46; Admin Dose 1 APPLIC; Start 03/22/17 at 09:00 Vancomycin HCl/ Dextrose/Water (Vancocin/D5W) 150 ml @ 75 mls/hr Q12H IVPB Last administered on 03/25/17 03:08; Admin Dose 75 MLS/HR; Start 03/23/17 at 15:00 Heparin Sodium (Porcine) 5000 unit 5,000 unit BID SC Last administered on 03/25 09:27; Admin Dose 5,000 UNIT; Start 03/23/17 at 10:00 Ceftriaxone Sodium (Rocephin) 50 ml @ 100 mls/hr Q24H IVPB Last administered on 03/24/17 11:18; Admin Dose 100 MLS/HR; Start 03/23/17 at 12:00 SUPA GONZALEZ NP Mar 25, 2017 11:34
[2017-03-25] MEDS ORDERED: LIDOCAINE 1% (MPF) 5 ML VIAL SC ONE (12:00)
[2017-03-25] MEDS: CEFTRIAXONE 1 GM/50 ML (PMX) 50 ML IVPB SCH (12:54)
[2017-03-25] MEDS: COLLAGENASE 30 GM TUBE TOP SCH (12:55)
[2017-03-25 13:46] LABS: PROTIME 13.2 Sec (12.2-14.2)
[2017-03-25 13:47] LABS: PARTIAL THROMBOPLASTIN TIME 37.1 Sec (25.0-35.0)
[2017-03-25 14:00] VITALS: BP 110/54; RESP 16
[2017-03-25 20:26] VITALS: BP 116/59; RESP 19
[2017-03-26] MEDS: INSULIN ASPART [NOVOLOG] 3 ML PEN SC SCH ×4 (00:39→17:21)
[2017-03-26] MEDS: VANCOMYCIN 750 MG in DEXTROSE 5% 150 ML IVPB SCH (02:47)
[2017-03-26 02:52] VITALS: BP 86/48; RESP 18
[2017-03-26 03:10] VITALS: BP 128/57; PULSE 87; RESP 19
[2017-03-26 05:46] LABS: BASOPHIL # 0.1 10^3/ul (0.0-0.1); BASOPHILS % 0.5 % (0.0-2.0); EOSINOPHILS # 0.4 10^3/ul (0.0-0.5); EOSINOPHILS % 3.8 % (0.0-7.0); HEMATOCRIT 36.5 % (37.0-47.0); HEMOGLOBIN 11.5 g/dl (12.0-16.0); LYMPHOCYTES % 18.3 % (15.0-51.0); MEAN CORPUSCULAR HEMOGLOBIN 29.9 pg (29.0-33.0); MEAN CORPUSCULAR HGB CONC 31.5 g/dl (32.0-37.0); MEAN CORPUSCULAR VOLUME 95.1 fl (82.0-101.0); MONOCYTE # 1.1 10^3/ul (0.3-0.9); MONOCYTES % 10.3 % (0.0-11.0); NEUTROPHIL # 7.1 10^3/ul (1.6-7.5); NEUTROPHILS % 66.4 % (39.0-77.0); PLATELET COUNT 257 10^3/UL (140-415); RED BLOOD COUNT 3.84 10^6/ul (4.20-5.40); RED CELL DISTRIBUTION WIDTH 13.9 % (11.5-14.5); WHITE BLOOD COUNT 10.6 10^3/ul (4.8-10.8)
[2017-03-26 05:54] LABS: MAGNESIUM 2.3 mg/dl (1.7-2.5); PHOSPHORUS 3.8 mg/dl (2.5-4.9)
[2017-03-26 05:59] LABS: CALCIUM 9.9 mg/dl (8.4-10.2); CREATININE 0.9 mg/dl (0.44-1.00)
[2017-03-26] MEDS: ACCU-CHEK XX SCH ×4 (06:00→17:20)
[2017-03-26] MEDS: LEVOTHYROXINE 100 MCG TAB PO SCH (06:38)
--- NOTE | 2017-03-26 07:32 | PN ---
Date/Time of Note Date/Time of Note DATE: 03/26/17 TIME: 07:32 Assessment/Plan VTE Prophylaxis VTE Prophylaxis Intervention: heparin Lines/Catheters [facility] Saline Lock Urinary Cath still in place: No Assessment/Plan Chief Complaint/Hosp Course 1. Decubitus ulcer of the left heel infected with polymicrobials with underlying osteomyelitis. On antibiotics as per infectious diseases. Status post evaluation by podiatry. 2. Essential hypertension. Continue antihypertensives. 3. Type 2 diabetes mellitus. Hemoglobin A1c 5.9%. Continue sliding scale insulin. 4. Seizure disorder. Continue anticonvulsants. 5. Hypothyroidism. Continue Synthroid. 6. Dysphagia. Status post PEG placement. Continue G-tube feedings. Aspiration precautions. 7. Dementia. Continue supportive care. 8. CAD. Continue aspirin. 9. CVA. Continue aspirin. 10. Fluids, electrolytes, and nutrition. G-tube feedings. 11. DVT prophylaxis with subcutaneous heparin. 12. Plan. Continue antimicrobials as per infectious diseases. Await PICC line placement. family support worker was unable to locate the patient's family. Case discussed with Dr. Dior. The patient has no immediate family members available for signing the PICC line consent. Inserting a PICC line is a medical necessity in this patient since the patient needs long-term IV antibiotics for treatment of the left foot osteomyelitis. Problems: Subjective 24 Hr Interval Summary Free Text/Dictation No changes in status. Unable to get hold of the patient's sister for signing the PICC line consent. Exam/Review of Systems Vital Signs Vitals Vital Signs Date Time Temp Pulse Resp B/P Pulse Ox O2 Delivery O2 Flow Rate FiO2 03/26/17 03:10 98.2 87 19 128/57 97 Room Air Intake and Output 03/25/17 03/25/17 03/26/17 14:59 22:59 06:59 Intake Total 50 ml 1020 ml 1050 ml Balance 50 ml 1020 ml 1050 ml Exam General: Elderly 86 year-old female lying in bed in no apparent distress. HEENT: Normocephalic, atraumatic. Eyes: Anicteric sclerae, conjunctivae clear. ENT: Nasal septum midline, oral mucosa moist. Neck supple, no JVD noticed. Respiratory: Bilaterally diminished breath sounds. No use of accessory muscles of respiration. No adventitious breath sounds. Cardiovascular: S1, S2 heard. Regular rate and rhythm. Abdomen: Soft, nontender, and nondistended. Bowel sounds positive in all 4 quadrants. Left upper quadrant tube in place Genitourinary: Deferred. Extremities: No cyanosis, no clubbing, no edema. Pedal pulses nonpalpable. Left heel dressing in place. Neurologic: Does not follow commands. Has underlying dementia. . Results Result Diagram: 03/26/17 0441 03/26/17 0441 Results 24 hrs Laboratory Tests Test 03/25/17 12:03 03/25/17 12:57 03/25/17 17:08 03/26/17 00:37 Bedside Glucose 134 140 145 Prothrombin Time 13.2 Prothrombin Time Ratio 1.0 INR International Normalized Ratio 1.00 Activated Partial Thromboplast Time 37.1 H Test 03/26/17 04:41 03/26/17 04:42 03/26/17 05:48 White Blood Count 10.6 Red Blood Count 3.84 L Hemoglobin 11.5 L Hematocrit 36.5 L Mean Corpuscular Volume 95.1 Mean Corpuscular Hemoglobin 29.9 Mean Corpuscular Hemoglobin Concent 31.5 L Red Cell Distribution Width 13.9 Platelet Count 257 Mean Platelet Volume 11.0 H Neutrophils % 66.4 Lymphocytes % 18.3 Monocytes % 10.3 Eosinophils % 3.8 Basophils % 0.5 Nucleated Red Blood Cells % 0.0 Neutrophils # 7.1 Lymphocytes # 2.0 Monocytes # 1.1 H Eosinophils # 0.4 Basophils # 0.1 Nucleated Red Blood Cells # 0.0 Sodium Level 144 Potassium Level 5.0 Chloride Level 108 Carbon Dioxide Level 32 H Anion Gap 9 Blood Urea Nitrogen 23 H Creatinine 0.90 Glucose Level 146 Calcium Level 9.9 Phosphorus Level 3.8 Magnesium Level 2.3 Bedside Glucose 139 Medications Medications Current Medications Diagnostic Test (Pha) (Accu-Chek) 1 ea Q6 XX Last administered on 03/25/17t 17 :09; Admin Dose 1 EA; Start 03/20/17 at 06:00 Miscellaneous [facility] This patient torres... PRN PRN XX WOUND CARE; Start 03/20/17 at 04:30 Miscellaneous Information 1 ea NOTE XX ; Start 03/20/17 at 05:00 Glucose (Glutose) 15 gm Q15M PRN PO DECREASED GLUCOSE; Start 03/20/17 at 05:00 Glucose (Glutose) 22.5 gm Q15M PRN PO DECREASED GLUCOSE; Start 03/20/17 at 05: 00 Dextrose (D50w Syringe) 25 ml Q15M PRN IV DECREASED GLUCOSE; Start 03/20/17 at 05:00 Dextrose (D50w Syringe) 50 ml Q15M PRN IV DECREASED GLUCOSE; Start 03/20/17 at 05:00 Glucagon (Glucagen) 1 mg Q15M PRN IM DECREASED GLUCOSE; Start 03/20/17 at 05: 00 Glucose (Glutose) 15 gm Q15M PRN BUCCAL DECREASED GLUCOSE; Start 03/20/17 at 05:00 Insulin Aspart (Novolog Insulin Pen) NOVOLOG *MODERATE* ALGORI... Q6 SC Last administered on 03/26/17 00:39; Admin Dose 2 UNIT; Start 03/20/17 at 06:00 Amlodipine Besylate (Norvasc) 2.5 mg BID PO Last administered on 03/25/17 20: 57; Admin Dose 2.5 MG; Start 03/20/17 at 09:00 Ascorbic Acid (Vitamin C) 500 mg DAILY PO Last administered on 03/25/17 09:25 ; Admin Dose 500 MG; Start 03/20/17 at 09:00 Levetiracetam (Keppra Liquid) 500 mg BID GTB Last administered on 03/25/17 20 :56; Admin Dose 500 MG; Start 03/20/17 at 09:00 Lisinopril (Zestril) 20 mg DAILY PO Last administered on 03/25/17 09:26; Admin Dose 20 MG; Start 03/20/17 at 09:00 Tramadol HCl (Ultram) 50 mg Q6H PRN GTB PAIN Last administered on 03/25/17 18 :26; Admin Dose 50 MG; Start 03/20/17 at 07:00 Collagenase 1 applic 1 applic DAILY TOP Last administered on 03/25/17 12:55; Admin Dose 1 APPLIC; Start 03/22/17 at 09:00 Vancomycin HCl/ Dextrose/Water (Vancocin/D5W) 150 ml @ 75 mls/hr Q12H IVPB Last administered on 03/26/17 02:47; Admin Dose 75 MLS/HR; Start 03/23/17 at 15:00 Heparin Sodium (Porcine) 5000 unit 5,000 unit BID SC Last administered on 03/25 20:58; Admin Dose 5,000 UNIT; Start 03/23/17 at 10:00 Ceftriaxone Sodium (Rocephin) 50 ml @ 100 mls/hr Q24H IVPB Last administered on 03/25/17 12:54; Admin Dose 100 MLS/HR; Start 03/23/17 at 12:00 Aspirin (Aspirin) 81 mg DAILY GTB ; Start 03/26/17 at 09:00 SUPA GONZALEZ NP Mar 26, 2017 07:32
[2017-03-26 07:50] VITALS: BP 120/59; RESP 18
[2017-03-26] MEDS: ASCORBIC ACID 500 MG TAB PO SCH (08:48)
[2017-03-26] MEDS: LISINOPRIL 20 MG TAB PO SCH (08:48)
[2017-03-26] MEDS: LEVETIRACETAM (100 MG/ML) 5ML CUP GTB SCH ×2 (08:48→20:49)
[2017-03-26] MEDS: AMLODIPINE 2.5 MG TAB PO SCH ×2 (08:48→20:50)
[2017-03-26] MEDS: ASPIRIN 81 MG TAB GTB SCH (08:48)
[2017-03-26] MEDS: COLLAGENASE 30 GM TUBE TOP SCH (08:49)
[2017-03-26] MEDS: HEPARIN 5,000 UNIT/0.5 ML VIAL SC SCH ×2 (08:50→21:01)
[2017-03-26] MEDS: CEFTRIAXONE 1 GM/50 ML (PMX) 50 ML IVPB SCH (11:44)
[2017-03-26 14:30] VITALS: BP 98/47; RESP 18
--- NOTE | 2017-03-26 20:05 | CONS ---
Date/Time of Note Date/Time of Note DATE: 03/26/17 TIME: 20:03 Assessment/Plan Assessment/Plan Chief Complaint/Hosp Course - Left diabetic foot ulcer with polymicrobial infection, stage 3, with likely osteomyelitis as suggested on X-ray; wound cx+ morganella, proteus, grp D strep , CoNS, and corynebacterium - T2DM - Hgb A1c 5.9% - PVD - CAD - HTN - H/o CVA - Dementia - Dysphagia s/p PEG - GERD - Anxiety d/o Recommendations: - Continue vancomycin and ceftriaxone x6 weeks - monitor CrCl - probiotics - we recommend PICC line for manager terminal IV abx - continue local wound care as recommended by Podiatry Management d/w HORTENSIA Deng and Dr. Douglass Problems: Consultation Date/Type/Reason Admit Date/Time Mar 22, 2017 at 19:02 Initial Consult Date 03/21/17 Type of Consultation: Infectious Disease Referring Provider: MARY KAY CORONADO 24 HR Interval Summary Free Text/Dictation No acute issues. Chart reviewed. Pt now on continues G-tube feed ATC; PICC line placement tomorrow per d/w nursing. Unable to perform ROS as pt is sleeping quietly but non-verbal at baseline. Exam/Review of Systems Vital Signs Vitals Vital Signs Date Time Temp Pulse Resp B/P Pulse Ox O2 Delivery O2 Flow Rate FiO2 03/26/17 14:30 98.2 89 18 98/47 96 03/26/17 03:10 Room Air Intake and Output 03/25/17 03/25/17 03/26/17 15:00 23:00 07:00 Intake Total 50 ml 1020 ml 1050 ml Balance 50 ml 1020 ml 1050 ml Exam Constitutional: well developed Head: atraumatic, normocephalic Respiratory: clear to auscultation, normal air movement Cardiovascular: regular rate and rhythm Gastrointestinal: non-tender, other (G-tube intact), soft Musculoskeletal: muscle weakness, range of motion (limited ROM; contractures noted with muscle atrophy) Neurological: other (sleeping, demented at baseline) Skin: other (Left heel ulcer with dressing c/d/i - see nurse note and photos in chart for details) Results Result Diagram: 03/26/17 0441 03/26/17 0441 Results 24 hrs Laboratory Tests Test 03/26/17 00:37 03/26/17 04:41 03/26/17 04:42 03/26/17 05:48 Bedside Glucose 145 139 White Blood Count 10.6 Red Blood Count 3.84 L Hemoglobin 11.5 L Hematocrit 36.5 L Mean Corpuscular Volume 95.1 Mean Corpuscular Hemoglobin 29.9 Mean Corpuscular Hemoglobin Concent 31.5 L Red Cell Distribution Width 13.9 Platelet Count 257 Mean Platelet Volume 11.0 H Neutrophils % 66.4 Lymphocytes % 18.3 Monocytes % 10.3 Eosinophils % 3.8 Basophils % 0.5 Nucleated Red Blood Cells % 0.0 Neutrophils # 7.1 Lymphocytes # 2.0 Monocytes # 1.1 H Eosinophils # 0.4 Basophils # 0.1 Nucleated Red Blood Cells # 0.0 Sodium Level 144 Potassium Level 5.0 Chloride Level 108 Carbon Dioxide Level 32 H Anion Gap 9 Blood Urea Nitrogen 23 H Creatinine 0.90 Glucose Level 146 Calcium Level 9.9 Phosphorus Level 3.8 Magnesium Level 2.3 Test 03/26/17 11:43 03/26/17 13:47 03/26/17 17:18 Bedside Glucose 119 141 Vancomycin Level Trough 21.5 *H Medications Medications Current Medications Diagnostic Test (Pha) (Accu-Chek) 1 ea Q6 XX Last administered on 03/25/17t 17 :09; Admin Dose 1 EA; Start 03/20/17 at 06:00 [facility] This patient torres... PRN PRN XX WOUND CARE; Start 03/20/17 at 04:30 Miscellaneous Information 1 ea NOTE XX ; Start 03/20/17 at 05:00 Glucose (Glutose) 15 gm Q15M PRN PO DECREASED GLUCOSE; Start 03/20/17 at 05:00 Glucose (Glutose) 22.5 gm Q15M PRN PO DECREASED GLUCOSE; Start 03/20/17 at 05: 00 Dextrose (D50w Syringe) 25 ml Q15M PRN IV DECREASED GLUCOSE; Start 03/20/17 at 05:00 Dextrose (D50w Syringe) 50 ml Q15M PRN IV DECREASED GLUCOSE; Start 03/20/17 at 05:00 Glucagon (Glucagen) 1 mg Q15M PRN IM DECREASED GLUCOSE; Start 03/20/17 at 05: 00 Glucose (Glutose) 15 gm Q15M PRN BUCCAL DECREASED GLUCOSE; Start 03/20/17 at 05:00 Insulin Aspart (Novolog Insulin Pen) NOVOLOG *MODERATE* ALGORI... Q6 SC Last administered on 03/26/17 17:21; Admin Dose 2 UNIT; Start 03/20/17 at 06:00 Amlodipine Besylate (Norvasc) 2.5 mg BID PO Last administered on 03/26/17 08: 48; Admin Dose 2.5 MG; Start 03/20/17 at 09:00 Ascorbic Acid (Vitamin C) 500 mg DAILY PO Last administered on 03/26/17 08:48 ; Admin Dose 500 MG; Start 03/20/17 at 09:00 Levetiracetam (Keppra Liquid) 500 mg BID GTB Last administered on 03/26/17 08 :48; Admin Dose 500 MG; Start 03/20/17 at 09:00 Lisinopril (Zestril) 20 mg DAILY PO Last administered on 03/26/17 08:48; Admin Dose 20 MG; Start 03/20/17 at 09:00 Tramadol HCl (Ultram) 50 mg Q6H PRN GTB PAIN Last administered on 03/25/17 18 :26; Admin Dose 50 MG; Start 03/20/17 at 07:00 Collagenase (Santyl) 1 applic DAILY TOP Last administered on 03/26/17 08:49; Admin Dose 1 APPLIC; Start 03/22/17 at 09:00 Heparin Sodium (Porcine) 5000 unit 5,000 unit BID SC Last administered on 03/26 08:50; Admin Dose 5,000 UNIT; Start 03/23/17 at 10:00 Ceftriaxone Sodium (Rocephin) 50 ml @ 100 mls/hr Q24H IVPB Last administered on 03/26/17 11:44; Admin Dose 100 MLS/HR; Start 03/23/17 at 12:00 Aspirin 81 mg 81 mg DAILY GTB Last administered on 03/26/17 08:48; Admin Dose 81 MG; Start 03/26/17 at 09:00 Vancomycin HCl/ Dextrose/Water (Vancocin/D5W) 150 ml @ 75 mls/hr Q24H IVPB ; Start 03/26/17 at 21:00 SONIYA NOBLE NP Mar 26, 2017 20:05
[2017-03-26 20:49] VITALS: BP 107/55; RESP 18
[2017-03-26] MEDS ORDERED: VANCOMYCIN 750 MG in DEXTROSE 5% 150 ML IVPB SCH (21:00)
[2017-03-27] MEDS: INSULIN ASPART [NOVOLOG] 3 ML PEN SC SCH ×4 (00:17→17:54)
[2017-03-27 02:09] VITALS: BP 116/55; RESP 17
[2017-03-27] MEDS: ACCU-CHEK XX SCH ×4 (05:34→17:51)
[2017-03-27 05:50] LABS: BASOPHILS % 0.4 % (0.0-2.0); EOSINOPHILS # 0.4 10^3/ul (0.0-0.5); EOSINOPHILS % 4.3 % (0.0-7.0); HEMOGLOBIN 11.8 g/dl (12.0-16.0); LYMPHOCYTES # 1.9 10^3/ul (0.8-2.9); LYMPHOCYTES % 20.6 % (15.0-51.0); MEAN CORPUSCULAR HEMOGLOBIN 29.9 pg (29.0-33.0); MEAN CORPUSCULAR HGB CONC 32.8 g/dl (32.0-37.0); MEAN CORPUSCULAR VOLUME 91.4 fl (82.0-101.0); MONOCYTES % 10.4 % (0.0-11.0); NEUTROPHILS % 63.9 % (39.0-77.0); PLATELET COUNT 269 10^3/UL (140-415); RED BLOOD COUNT 3.94 10^6/ul (4.20-5.40); RED CELL DISTRIBUTION WIDTH 13.6 % (11.5-14.5); WHITE BLOOD COUNT 9.4 10^3/ul (4.8-10.8)
[2017-03-27] MEDS: LEVOTHYROXINE 100 MCG TAB PO SCH (06:18)
[2017-03-27 06:43] LABS: MAGNESIUM 2.2 mg/dl (1.7-2.5); PHOSPHORUS 3.5 mg/dl (2.5-4.9)
[2017-03-27 06:44] LABS: CALCIUM 9.3 mg/dl (8.4-10.2); CREATININE 0.75 mg/dl (0.44-1.00)
[2017-03-27 08:21] VITALS: BP 101/51; RESP 18
[2017-03-27] MEDS: LEVETIRACETAM (100 MG/ML) 5ML CUP GTB SCH ×2 (09:00→20:15)
[2017-03-27] MEDS: COLLAGENASE 30 GM TUBE TOP SCH (09:02)
[2017-03-27] MEDS: ASCORBIC ACID 500 MG TAB PO SCH (09:02)
[2017-03-27] MEDS: AMLODIPINE 2.5 MG TAB PO SCH ×2 (09:02→20:18)
[2017-03-27] MEDS: LISINOPRIL 20 MG TAB PO SCH (09:02)
[2017-03-27] MEDS: ASPIRIN 81 MG TAB GTB SCH (09:02)
[2017-03-27] MEDS: HEPARIN 5,000 UNIT/0.5 ML VIAL SC SCH ×2 (09:03→20:18)
[2017-03-27] MEDS: CEFTRIAXONE 1 GM/50 ML (PMX) 50 ML IVPB SCH (12:20)
--- NOTE | 2017-03-27 12:29 | PN ---
Date/Time of Note Date/Time of Note DATE: 03/27/17 TIME: 12:29 Assessment/Plan VTE Prophylaxis VTE Prophylaxis Intervention: heparin Lines/Catheters [facility] [place] [facility] Urinary Cath still in place: No Assessment/Plan Chief Complaint/Hosp Course 1. Decubitus ulcer of the left heel infected with polymicrobials with underlying osteomyelitis. On antibiotics as per infectious diseases. Status post evaluation by podiatry. 2. Essential hypertension. Continue antihypertensives. 3. Type 2 diabetes mellitus. Hemoglobin A1c 5.9%. Continue sliding scale insulin. 4. Seizure disorder. Continue anticonvulsants. 5. Hypothyroidism. Continue Synthroid. 6. Dysphagia. Status post PEG placement. Continue G-tube feedings. Aspiration precautions. 7. Dementia. Continue supportive care. 8. CAD. Continue aspirin. 9. CVA. Continue aspirin. 10. Fluids, electrolytes, and nutrition. G-tube feedings. 11. DVT prophylaxis with subcutaneous heparin. 12. Plan. Continue antimicrobials as per infectious diseases. Await PICC line placement. Case discussed with Dr. Dior. The patient has no immediate family members available for signing the PICC line consent. Inserting a PICC line is a medical necessity in this patient since the patient needs long-term IV antibiotics for treatment of the left foot osteomyelitis. Problems: Subjective 24 Hr Interval Summary Free Text/Dictation The patient remains afebrile. No changes in status. Exam/Review of Systems Vital Signs Vitals Vital Signs Date Time Temp Pulse Resp B/P Pulse Ox O2 Delivery O2 Flow Rate FiO2 03/27/17 08:21 97.9 63 18 101/51 96 03/26/17 03:10 Room Air Intake and Output 03/26/17 03/26/17 03/27/17 15:00 23:00 07:00 Intake Total 500 ml 900 ml Balance 500 ml 900 ml Exam General: Elderly 86 year-old female lying in bed in no apparent distress. HEENT: Normocephalic, atraumatic. Eyes: Anicteric sclerae, conjunctivae clear. ENT: Nasal septum midline, oral mucosa moist. Neck supple, no JVD noticed. Respiratory: Bilaterally diminished breath sounds. No use of accessory muscles of respiration. No adventitious breath sounds. Cardiovascular: S1, S2 heard. Regular rate and rhythm. Abdomen: Soft, nontender, and nondistended. Bowel sounds positive in all 4 quadrants. Left upper quadrant tube in place Genitourinary: Deferred. Extremities: No cyanosis, no clubbing, no edema. Pedal pulses nonpalpable. Left heel dressing in place. Neurologic: Does not follow commands. Has underlying dementia. Results Result Diagram: 03/27/17 0459 03/27/17 0459 Results 24 hrs Laboratory Tests Test 03/26/17 13:47 03/26/17 17:18 03/27/17 00:13 03/27/17 04:59 Vancomycin Level Trough 21.5 *H Bedside Glucose 141 155 White Blood Count 9.4 Red Blood Count 3.94 L Hemoglobin 11.8 L Hematocrit 36.0 L Mean Corpuscular Volume 91.4 Mean Corpuscular Hemoglobin 29.9 Mean Corpuscular Hemoglobin Concent 32.8 Red Cell Distribution Width 13.6 Platelet Count 269 Mean Platelet Volume 11.0 H Neutrophils % 63.9 Lymphocytes % 20.6 Monocytes % 10.4 Eosinophils % 4.3 Basophils % 0.4 Nucleated Red Blood Cells % 0.0 Neutrophils # 6.0 Lymphocytes # 1.9 Monocytes # 1.0 H Eosinophils # 0.4 Basophils # 0.0 Nucleated Red Blood Cells # 0.0 Sodium Level 142 Potassium Level 4.0 Chloride Level 106 Carbon Dioxide Level 30 Anion Gap 10 Blood Urea Nitrogen 23 H Creatinine 0.75 Glucose Level 122 Calcium Level 9.3 Phosphorus Level 3.5 Magnesium Level 2.2 Test 03/27/17 05:31 03/27/17 12:22 Bedside Glucose 147 143 Medications Medications Current Medications Diagnostic Test (Pha) (Accu-Chek) 1 ea Q6 XX Last administered on 03/25/17t 17 :09; Admin Dose 1 EA; Start 03/20/17 at 06:00 Miscellaneous Information (Pending Santyl Order For Wound Care) This patient torres... PRN PRN XX WOUND CARE; Start 03/20/17 at 04:30 Miscellaneous Information 1 ea NOTE XX ; Start 03/20/17 at 05:00 Glucose (Glutose) 15 gm Q15M PRN PO DECREASED GLUCOSE; Start 03/20/17 at 05:00 Glucose (Glutose) 22.5 gm Q15M PRN PO DECREASED GLUCOSE; Start 03/20/17 at 05: 00 Dextrose (D50w Syringe) 25 ml Q15M PRN IV DECREASED GLUCOSE; Start 03/20/17 at 05:00 Dextrose (D50w Syringe) 50 ml Q15M PRN IV DECREASED GLUCOSE; Start 03/20/17 at 05:00 Glucagon (Glucagen) 1 mg Q15M PRN IM DECREASED GLUCOSE; Start 03/20/17 at 05: 00 Glucose (Glutose) 15 gm Q15M PRN BUCCAL DECREASED GLUCOSE; Start 03/20/17 at 05:00 Insulin Aspart (Novolog Insulin Pen) NOVOLOG *MODERATE* ALGORI... Q6 SC Last administered on 03/27/17 05:34; Admin Dose 2 UNIT; Start 03/20/17 at 06:00 Amlodipine Besylate (Norvasc) 2.5 mg BID PO Last administered on 03/27/17 09: 02; Admin Dose 2.5 MG; Start 03/20/17 at 09:00 Ascorbic Acid (Vitamin C) 500 mg DAILY PO Last administered on 03/27/17 09:02 ; Admin Dose 500 MG; Start 03/20/17 at 09:00 Levetiracetam (Keppra Liquid) 500 mg BID GTB Last administered on 03/27/17 09 :00; Admin Dose 500 MG; Start 03/20/17 at 09:00 Lisinopril (Zestril) 20 mg DAILY PO Last administered on 03/27/17 09:02; Admin Dose 20 MG; Start 03/20/17 at 09:00 Tramadol HCl (Ultram) 50 mg Q6H PRN GTB PAIN Last administered on 03/25/17 18 :26; Admin Dose 50 MG; Start 03/20/17 at 07:00 Collagenase (Santyl) 1 applic DAILY TOP Last administered on 03/27/17 09:02; Admin Dose 1 APPLIC; Start 03/22/17 at 09:00 Heparin Sodium (Porcine) 5000 unit 5,000 unit BID SC Last administered on 03/27 09:03; Admin Dose 5,000 UNIT; Start 03/23/17 at 10:00 Ceftriaxone Sodium (Rocephin) 50 ml @ 100 mls/hr Q24H IVPB Last administered on 03/26/17 11:44; Admin Dose 100 MLS/HR; Start 03/23/17 at 12:00 Aspirin 81 mg 81 mg DAILY GTB Last administered on 03/27/17 09:02; Admin Dose 81 MG; Start 03/26/17 at 09:00 Vancomycin HCl/ Dextrose/Water (Vancocin/D5W) 150 ml @ 75 mls/hr Q24H IVPB Last administered on 03/26/17 20:52; Admin Dose 75 MLS/HR; Start 03/26/17 at 21:00 SUPA GONZALEZ NP Mar 27, 2017 12:29
[2017-03-27 14:30] VITALS: BP 110/60; RESP 18
--- NOTE | 2017-03-27 15:49 | RADRPT ---
PROCEDURE: XR portable chest CLINICAL INDICATION: PICC line placement TECHNIQUE: Portable supine chest radiograph COMPARISON: Portable supine radiograph 03/27/2017 abdomen 1511 hours FINDINGS: The tip of the right PICC line projects in the upper right atrium. No significant change in bilateral low lung volumes. No significant change in elevated right hemidia phragm. No other significant interval changes seen given the rotated nature of this radiograph. IMPRESSION: 1. Tip of the right PICC line projects in the upper right atrium RPTAT: TT Alva Bardales Physician Date Time Electronically viewed and signed by Alva Bardales Physician on 03/27/2017 15:48 JS/
--- NOTE | 2017-03-27 15:53 | RADRPT ---
PROCEDURE: Chest x-ray CLINICAL INDICATION: PICC line placement TECHNIQUE: Chest single view COMPARISON: None FINDINGS: There is placement right arm PICC line with tip is coiled upon itself in the mid SVC. The heart is n ormal in size. The pulmonary vessels are normal in caliber. The lungs are clear. The costophrenic angles are sharp. The visualized bony thorax is unremarkable. IMPRESSION: 1. Right arm PICC line with tip coiled upon itself in the mid SVC. Note the patient has a subsequen t x-ray demonstrating correction of this. RPTAT: HH .Randolph Espana MD, MD Date Time Electronically viewed and signed by .Randolph Espana MD, on 03/27/2017 15:53 .W/
--- NOTE | 2017-03-27 16:07 | RADRPT ---
PROCEDURE: Ultrasound guidance for placement of needle in right upper extremity vein. CLINICAL INDICATION: Venous access. Central line placement. TECHNIQUE: Limited sonography of the right upper extremity was performed. Ultrasound images were recorded and stored in the patient's medical record. COMPARISON: None. FINDINGS: The ultrasound images demonstrate a patent right upper extremity vein. The PICC line was inserted b y the PICC line nurse. IMPRESSION: 1. Ultrasound guidance for a needle placement in a right upper extremity vein. 2. The visualized right upper extremity vein is patent. RPTAT: QQ .Asael Dent MD, MD Date Time Electronically viewed and signed by .Asael Dent MD, MD on 03/27/2017 16:07 .B/
[2017-03-27] MEDS ORDERED: SOD CHLORIDE 0.9% 100 ML ONE (16:51)
[2017-03-27] MEDS: VANCOMYCIN 1 GM in NS 250 ML IVPB SCH (20:15)
[2017-03-27 20:31] VITALS: BP 137/79; RESP 20
[2017-03-28] MEDS: ACCU-CHEK XX SCH ×4 (00:24→17:08)
[2017-03-28 02:13] VITALS: BP 137/65; RESP 18
[2017-03-28] MEDS: INSULIN ASPART [NOVOLOG] 3 ML PEN SC SCH ×4 (05:15→17:09)
[2017-03-28] MEDS: LEVOTHYROXINE 100 MCG TAB PO SCH (05:16)
[2017-03-28 06:51] LABS: BASOPHILS % 0.4 % (0.0-2.0); EOSINOPHILS # 0.4 10^3/ul (0.0-0.5); EOSINOPHILS % 4.1 % (0.0-7.0); HEMATOCRIT 37.3 % (37.0-47.0); LYMPHOCYTES # 1.4 10^3/ul (0.8-2.9); LYMPHOCYTES % 14.6 % (15.0-51.0); MEAN CORPUSCULAR HEMOGLOBIN 29.9 pg (29.0-33.0); MEAN CORPUSCULAR HGB CONC 32.2 g/dl (32.0-37.0); MEAN CORPUSCULAR VOLUME 92.8 fl (82.0-101.0); MEAN PLATELET VOLUME 11.1 fl (7.4-10.4); MONOCYTE # 0.9 10^3/ul (0.3-0.9); MONOCYTES % 9.2 % (0.0-11.0); NEUTROPHIL # 6.7 10^3/ul (1.6-7.5); NEUTROPHILS % 71.3 % (39.0-77.0); PLATELET COUNT 255 10^3/UL (140-415); RED BLOOD COUNT 4.02 10^6/ul (4.20-5.40); RED CELL DISTRIBUTION WIDTH 13.7 % (11.5-14.5); WHITE BLOOD COUNT 9.4 10^3/ul (4.8-10.8)
[2017-03-28 07:16] LABS: CALCIUM 9.6 mg/dl (8.4-10.2); CREATININE 0.73 mg/dl (0.44-1.00); POTASSIUM 3.8 mmol/L (3.5-5.1)
[2017-03-28 07:17] LABS: MAGNESIUM 2.1 mg/dl (1.7-2.5); PHOSPHORUS 3.5 mg/dl (2.5-4.9)
[2017-03-28 07:58] VITALS: BP_SYST 53; RESP 20
[2017-03-28 08:05] VITALS: BP 103/53; RESP 20
[2017-03-28] MEDS: ASPIRIN 81 MG TAB GTB SCH (08:57)
[2017-03-28] MEDS: ASCORBIC ACID 500 MG TAB PO SCH (08:57)
[2017-03-28] MEDS: LEVETIRACETAM (100 MG/ML) 5ML CUP GTB SCH ×2 (08:57→20:51)
[2017-03-28] MEDS: LISINOPRIL 20 MG TAB PO SCH ×2 (08:58→15:23)
[2017-03-28] MEDS: AMLODIPINE 2.5 MG TAB PO SCH ×3 (08:58→21:40)
[2017-03-28] MEDS: COLLAGENASE 30 GM TUBE TOP SCH (09:00)
[2017-03-28] MEDS: HEPARIN 5,000 UNIT/0.5 ML VIAL SC SCH ×2 (09:01→20:39)
--- NOTE | 2017-03-28 10:01 | CONS ---
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 - continue local wound care as recommended by Podiatry Problems: Consultation Date/Type/Reason Admit Date/Time Mar 22, 2017 at 19:02 Initial Consult Date 03/21/17 Type of Consultation: Infectious Disease Referring Provider: MARY KAY CORONADO 24 HR Interval Summary Free Text/Dictation continues on abx Exam/Review of Systems Vital Signs Vitals Vital Signs Date Time Temp Pulse Resp B/P Pulse Ox O2 Delivery O2 Flow Rate FiO2 03/28/17 07:58 97.9 73 20 53/ 96 03/26/17 03:10 Room Air Intake and Output 03/27/17 03/27/17 03/28/17 15:00 23:00 07:00 Intake Total 50 ml 250 ml Balance 50 ml 250 ml Exam Constitutional: alert, oriented, well developed Psych: anxiety, depression Head: atraumatic, normocephalic Eyes: EOMI Neck: supple Respiratory: clear to auscultation, normal air movement Cardiovascular: regular rate and rhythm Gastrointestinal: soft Results Result Diagram: 03/28/17 0555 03/28/17 0555 Results 24 hrs Laboratory Tests Test 03/27/17 12:22 03/27/17 17:51 03/28/17 00:24 03/28/17 05:13 Bedside Glucose 143 165 131 144 Test 03/28/17 05:55 White Blood Count 9.4 Red Blood Count 4.02 L Hemoglobin 12.0 Hematocrit 37.3 Mean Corpuscular Volume 92.8 Mean Corpuscular Hemoglobin 29.9 Mean Corpuscular Hemoglobin Concent 32.2 Red Cell Distribution Width 13.7 Platelet Count 255 Mean Platelet Volume 11.1 H Neutrophils % 71.3 Lymphocytes % 14.6 L Monocytes % 9.2 Eosinophils % 4.1 Basophils % 0.4 Nucleated Red Blood Cells % 0.0 Neutrophils # 6.7 Lymphocytes # 1.4 Monocytes # 0.9 Eosinophils # 0.4 Basophils # 0.0 Nucleated Red Blood Cells # 0.0 Sodium Level 146 H Potassium Level 3.8 Chloride Level 110 Carbon Dioxide Level 32 H Anion Gap 8 Blood Urea Nitrogen 20 Creatinine 0.73 Glucose Level 130 Calcium Level 9.6 Phosphorus Level 3.5 Magnesium Level 2.1 Medications Medications Current Medications Diagnostic Test (Pha) (Accu-Chek) 1 ea Q6 XX Last administered on 03/28/17 05 :16; Admin Dose 1 EA; Start 03/20/17 at 06:00 Miscellaneous Information [facility] This patient torres... PRN PRN XX WOUND CARE; Start 03/20/17 at 04:30 Miscellaneous Information 1 ea NOTE XX ; Start 03/20/17 at 05:00 Glucose (Glutose) 15 gm Q15M PRN PO DECREASED GLUCOSE; Start 03/20/17 at 05:00 Glucose (Glutose) 22.5 gm Q15M PRN PO DECREASED GLUCOSE; Start 03/20/17 at 05: 00 Dextrose (D50w Syringe) 25 ml Q15M PRN IV DECREASED GLUCOSE; Start 03/20/17 at 05:00 Dextrose (D50w Syringe) 50 ml Q15M PRN IV DECREASED GLUCOSE; Start 03/20/17 at 05:00 Glucagon (Glucagen) 1 mg Q15M PRN IM DECREASED GLUCOSE; Start 03/20/17 at 05: 00 Glucose (Glutose) 15 gm Q15M PRN BUCCAL DECREASED GLUCOSE; Start 03/20/17 at 05:00 Insulin Aspart (Novolog Insulin Pen) NOVOLOG *MODERATE* ALGORI... Q6 SC Last administered on 03/28/17 05:15; Admin Dose 2 UNIT; Start 03/20/17 at 06:00 Amlodipine Besylate (Norvasc) 2.5 mg BID PO Last administered on 03/27/17 20: 18; Admin Dose 2.5 MG; Start 03/20/17 at 09:00 Ascorbic Acid (Vitamin C) 500 mg DAILY PO Last administered on 03/28/17 08:57 ; Admin Dose 500 MG; Start 03/20/17 at 09:00 Levetiracetam (Keppra Liquid) 500 mg BID GTB Last administered on 03/28/17 08 :57; Admin Dose 500 MG; Start 03/20/17 at 09:00 Lisinopril (Zestril) 20 mg DAILY PO Last administered on 03/27/17 09:02; Admin Dose 20 MG; Start 03/20/17 at 09:00 Tramadol HCl (Ultram) 50 mg Q6H PRN GTB PAIN Last administered on 03/25/17 18 :26; Admin Dose 50 MG; Start 03/20/17 at 07:00 Collagenase (Santyl) 1 applic DAILY TOP Last administered on 03/27/17 09:02; Admin Dose 1 APPLIC; Start 03/22/17 at 09:00 Heparin Sodium (Porcine) 5000 unit 5,000 unit BID SC Last administered on 03/28 09:01; Admin Dose 5,000 UNIT; Start 03/23/17 at 10:00 Ceftriaxone Sodium (Rocephin) 50 ml @ 100 mls/hr Q24H IVPB Last administered on 03/27/17 12:20; Admin Dose 100 MLS/HR; Start 03/23/17 at 12:00 Aspirin 81 mg 81 mg DAILY GTB Last administered on 03/28/17 08:57; Admin Dose 81 MG; Start 03/26/17 at 09:00 Vancomycin HCl (Vancocin) 250 ml @ 125 mls/hr Q24H IVPB Last administered on 03/27/17 20:15; Admin Dose 125 MLS/HR; Start 03/27/17 at 21:00 IV Flush (NS 10 ml) 10 ml PRN PRN IV IV PROTOCOL; Start 03/27/17 at 16:30 JUNIOR BAKER MD Mar 28, 2017 10:01
[2017-03-28] MEDS: CEFTRIAXONE 1 GM/50 ML (PMX) 50 ML IVPB SCH (11:21)
[2017-03-28] MEDS: traMADol 50 MG TAB GTB PRN ×2 (11:21→17:11)
[2017-03-28 14:30] VITALS: BP 191/75; RESP 20
--- NOTE | 2017-03-28 15:39 | PN ---
Date/Time of Note Date/Time of Note DATE: 03/28/17 TIME: 15:37 Assessment/Plan VTE Prophylaxis VTE Prophylaxis Intervention: heparin Lines/Catheters IV [facility] Type [facility] PICC Line Central line still needed: Yes Urinary Cath still in place: No Assessment/Plan Chief Complaint/Hosp Course 1. Decubitus ulcer of the left heel infected with polymicrobials with underlying osteomyelitis. On antibiotics as per infectious diseases. Status post evaluation by podiatry. 2. Essential hypertension. Continue antihypertensives. 3. Type 2 diabetes mellitus. Hemoglobin A1c 5.9%. Continue sliding scale insulin. 4. Seizure disorder. Continue anticonvulsants. 5. Hypothyroidism. Continue Synthroid. 6. Dysphagia. Status post PEG placement. Continue G-tube feedings. Aspiration precautions. 7. Dementia. Continue supportive care. 8. CAD. Continue aspirin. 9. CVA. Continue aspirin. 10. Fluids, electrolytes, and nutrition. G-tube feedings. 11. DVT prophylaxis with subcutaneous heparin. 12. Plan. Continue antimicrobials as per infectious diseases. Discharge the patient to the correction facility on long-term IV antibiotics once the patient's blood pressure is stable. Case discussed with Dr. Dior. Problems: Subjective 24 Hr Interval Summary Free Text/Dictation Patient's blood pressure running high. Exam/Review of Systems Vital Signs Vitals Vital Signs Date Time Temp Pulse Resp B/P Pulse Ox O2 Delivery O2 Flow Rate FiO2 03/28/17 14:30 98.0 89 20 191/75 96 03/26/17 03:10 Room Air Intake and Output 03/27/17 03/27/17 03/28/17 15:00 23:00 07:00 Intake Total 50 ml 250 ml Balance 50 ml 250 ml Exam General: Elderly 86 year-old female lying in bed in no apparent distress. HEENT: Normocephalic, atraumatic. Eyes: Anicteric sclerae, conjunctivae clear. ENT: Nasal septum midline, oral mucosa moist. Neck supple, no JVD noticed. Respiratory: Bilaterally diminished breath sounds. No use of accessory muscles of respiration. No adventitious breath sounds. Cardiovascular: S1, S2 heard. Regular rate and rhythm. Abdomen: Soft, nontender, and nondistended. Bowel sounds positive in all 4 quadrants. Left upper quadrant tube in place Genitourinary: Deferred. Extremities: No cyanosis, no clubbing, no edema. Pedal pulses nonpalpable. Left heel dressing in place. Neurologic: Does not follow commands. Has underlying dementia. Results Result Diagram: 03/28/17 0555 03/28/17 0555 Results 24 hrs Laboratory Tests Test 03/27/17 17:51 03/28/17 00:24 03/28/17 05:13 03/28/17 05:55 Bedside Glucose 165 131 144 White Blood Count 9.4 Red Blood Count 4.02 L Hemoglobin 12.0 Hematocrit 37.3 Mean Corpuscular Volume 92.8 Mean Corpuscular Hemoglobin 29.9 Mean Corpuscular Hemoglobin Concent 32.2 Red Cell Distribution Width 13.7 Platelet Count 255 Mean Platelet Volume 11.1 H Neutrophils % 71.3 Lymphocytes % 14.6 L Monocytes % 9.2 Eosinophils % 4.1 Basophils % 0.4 Nucleated Red Blood Cells % 0.0 Neutrophils # 6.7 Lymphocytes # 1.4 Monocytes # 0.9 Eosinophils # 0.4 Basophils # 0.0 Nucleated Red Blood Cells # 0.0 Sodium Level 146 H Potassium Level 3.8 Chloride Level 110 Carbon Dioxide Level 32 H Anion Gap 8 Blood Urea Nitrogen 20 Creatinine 0.73 Glucose Level 130 Calcium Level 9.6 Phosphorus Level 3.5 Magnesium Level 2.1 Test 03/28/17 11:33 Bedside Glucose 146 Medications Medications Current Medications Diagnostic Test (Pha) (Accu-Chek) 1 ea Q6 XX Last administered on 03/28/17t 11 :34; Admin Dose 1 EA; Start 03/20/17 at 06:00 Miscellaneous Information (Pending [facility] Order For Wound Care) This patient torres... PRN PRN XX WOUND CARE; Start 03/20/17 at 04:30 Miscellaneous Information 1 ea NOTE XX ; Start 03/20/17 at 05:00 Glucose (Glutose) 15 gm Q15M PRN PO DECREASED GLUCOSE; Start 03/20/17 at 05:00 Glucose (Glutose) 22.5 gm Q15M PRN PO DECREASED GLUCOSE; Start 03/20/17 at 05: 00 Dextrose (D50w Syringe) 25 ml Q15M PRN IV DECREASED GLUCOSE; Start 03/20/17 at 05:00 Dextrose (D50w Syringe) 50 ml Q15M PRN IV DECREASED GLUCOSE; Start 03/20/17 at 05:00 Glucagon (Glucagen) 1 mg Q15M PRN IM DECREASED GLUCOSE; Start 03/20/17 at 05: 00 Glucose (Glutose) 15 gm Q15M PRN BUCCAL DECREASED GLUCOSE; Start 03/20/17 at 05:00 Insulin Aspart (Novolog Insulin Pen) NOVOLOG *MODERATE* ALGORI... Q6 SC Last administered on 03/28/17 11:36; Admin Dose 2 UNIT; Start 03/20/17 at 06:00 Amlodipine Besylate (Norvasc) 2.5 mg BID PO Last administered on 03/28/17 15: 22; Admin Dose 2.5 MG; Start 03/20/17 at 09:00 Ascorbic Acid (Vitamin C) 500 mg DAILY PO Last administered on 03/28/17 08:57 ; Admin Dose 500 MG; Start 03/20/17 at 09:00 Levetiracetam (Keppra Liquid) 500 mg BID GTB Last administered on 03/28/17 08 :57; Admin Dose 500 MG; Start 03/20/17 at 09:00 Lisinopril (Zestril) 20 mg DAILY PO Last administered on 03/28/17 15:23; Admin Dose 20 MG; Start 03/20/17 at 09:00 Tramadol HCl (Ultram) 50 mg Q6H PRN GTB PAIN Last administered on 03/28/17 11 :21; Admin Dose 50 MG; Start 03/20/17 at 07:00 Collagenase (Santyl) 1 applic DAILY TOP Last administered on 03/27/17 09:02; Admin Dose 1 APPLIC; Start 03/22/17 at 09:00 Heparin Sodium (Porcine) 5000 unit 5,000 unit BID SC Last administered on 03/28 09:01; Admin Dose 5,000 UNIT; Start 03/23/17 at 10:00 Ceftriaxone Sodium (Rocephin) 50 ml @ 100 mls/hr Q24H IVPB Last administered on 03/28/17 11:21; Admin Dose 100 MLS/HR; Start 03/23/17 at 12:00 Aspirin 81 mg 81 mg DAILY GTB Last administered on 03/28/17 08:57; Admin Dose 81 MG; Start 03/26/17 at 09:00 Vancomycin HCl (Vancocin) 250 ml @ 125 mls/hr Q24H IVPB Last administered on 03/27/17t 20:15; Admin Dose 125 MLS/HR; Start 03/27/17 at 21:00 IV Flush (NS 10 ml) 10 ml PRN PRN IV IV PROTOCOL; Start 03/27/17 at 16:30 SUPA GONZALEZ NP Mar 28, 2017 15:39
[2017-03-28 20:00] VITALS: BP 142/67; RESP 18
[2017-03-28] MEDS ORDERED: POLYETHYLENE GLYCOL 17 GM PACKET GTB SCH (21:00)
[2017-03-28 21:16] VITALS: BP 128/60; PULSE 89; RESP 14
[2017-03-28] MEDS: DOCUSATE SODIUM 10 MG/ML (10ML CUP) GTB SCH (21:40)
[2017-03-28] MEDS: VANCOMYCIN 1 GM in NS 250 ML IVPB SCH (21:41)
[2017-03-29] MEDS: ACCU-CHEK XX SCH ×3 (00:57→12:00)
[2017-03-29 02:00] VITALS: BP 93/50; RESP 19
[2017-03-29] MEDS: INSULIN ASPART [NOVOLOG] 3 ML PEN SC SCH ×3 (05:44→12:00)
[2017-03-29] MEDS: LEVOTHYROXINE 100 MCG TAB PO SCH (05:45)
[2017-03-29] MEDS: traMADol 50 MG TAB GTB PRN (05:47)
[2017-03-29 06:08] LABS: BASOPHIL # 0.1 10^3/ul (0.0-0.1); BASOPHILS % 0.5 % (0.0-2.0); EOSINOPHILS # 0.4 10^3/ul (0.0-0.5); EOSINOPHILS % 3.8 % (0.0-7.0); HEMATOCRIT 35.8 % (37.0-47.0); HEMOGLOBIN 11.3 g/dl (12.0-16.0); LYMPHOCYTES # 1.7 10^3/ul (0.8-2.9); LYMPHOCYTES % 18.1 % (15.0-51.0); MEAN CORPUSCULAR HEMOGLOBIN 29.7 pg (29.0-33.0); MEAN CORPUSCULAR HGB CONC 31.6 g/dl (32.0-37.0); MEAN PLATELET VOLUME 11.3 fl (7.4-10.4); MONOCYTE # 0.9 10^3/ul (0.3-0.9); MONOCYTES % 9.6 % (0.0-11.0); NEUTROPHIL # 6.2 10^3/ul (1.6-7.5); NEUTROPHILS % 67.5 % (39.0-77.0); PLATELET COUNT 246 10^3/UL (140-415); RED BLOOD COUNT 3.81 10^6/ul (4.20-5.40); RED CELL DISTRIBUTION WIDTH 13.9 % (11.5-14.5); WHITE BLOOD COUNT 9.1 10^3/ul (4.8-10.8)
[2017-03-29 06:30] LABS: MAGNESIUM 2.2 mg/dl (1.7-2.5)
[2017-03-29 06:31] LABS: CALCIUM 9.3 mg/dl (8.4-10.2); CREATININE 0.77 mg/dl (0.44-1.00); POTASSIUM 4.2 mmol/L (3.5-5.1)
[2017-03-29 08:00] VITALS: BP 99/63; RESP 18
[2017-03-29] MEDS: AMLODIPINE 2.5 MG TAB PO SCH (09:00)
[2017-03-29] MEDS: COLLAGENASE 30 GM TUBE TOP SCH (09:00)
[2017-03-29] MEDS: LISINOPRIL 20 MG TAB PO SCH (09:00)
[2017-03-29] MEDS: LEVETIRACETAM (100 MG/ML) 5ML CUP GTB SCH (09:01)
[2017-03-29] MEDS: ASCORBIC ACID 500 MG TAB PO SCH (09:01)
[2017-03-29] MEDS: DOCUSATE SODIUM 10 MG/ML (10ML CUP) GTB SCH (09:01)
[2017-03-29] MEDS: ASPIRIN 81 MG TAB GTB SCH (09:01)
[2017-03-29] MEDS: HEPARIN 5,000 UNIT/0.5 ML VIAL SC SCH (09:04)
--- NOTE | 2017-03-29 11:12 | CONS ---
Date/Time of Note Date/Time of Note DATE: 03/29/17 TIME: 11:10 Assessment/Plan Assessment/Plan Chief Complaint/Hosp Course - Left diabetic foot ulcer with polymicrobial infection, stage 3, with likely osteomyelitis as suggested on X-ray; wound cx+ morganella, proteus, grp D strep , CoNS, and corynebacterium - T2DM - Hgb A1c 5.9% - PVD - CAD - HTN - H/o CVA - Dementia - Dysphagia s/p PEG - GERD - Anxiety d/o Recommendations: - Continue vancomycin and ceftriaxone x6 weeks via PICC - monitor CrCl - probiotics - continue local wound care as recommended by Podiatry Management d/w Dr. Douglass Problems: Consultation Date/Type/Reason Admit Date/Time Mar 22, 2017 at 19:02 Initial Consult Date 03/21/17 Type of Consultation: Infectious Disease Referring Provider: MARY KAY CORONADO 24 HR Interval Summary Free Text/Dictation Chart reviewed. Afebrile. No acute issues. DC planning to SNF today. Unable to perform ROS d/t advanced dementia; pt non-verbal Exam/Review of Systems Vital Signs Vitals Vital Signs Date Time Temp Pulse Resp B/P Pulse Ox O2 Delivery O2 Flow Rate FiO2 03/29/17 08:00 98.9 67 18 99/63 99 03/28/17 21:16 Room Air Intake and Output 03/28/17 03/28/17 03/29/17 15:00 23:00 07:00 Intake Total 50 ml 900 ml 1270 ml Balance 50 ml 900 ml 1270 ml Exam Constitutional: frail, non-verbal, well developed Psych: confusion Head: atraumatic, normocephalic Eyes: nl sclera Respiratory: clear to auscultation, normal air movement Cardiovascular: nl pulses, regular rate and rhythm Gastrointestinal: non-tender, other (G-tube intact), soft Musculoskeletal: muscle weakness, range of motion (limited ROM; contractures noted with muscle atrophy) Neurological: lethargic, other (demented and non-verbal) Skin: other (Left heel ulcer with dressing c/d/i - see nurse note and photos in chart for details) Results Result Diagram: 03/29/17 0511 03/29/17 0511 Results 24 hrs Laboratory Tests Test 03/28/17 11:33 03/28/17 16:59 03/29/17 00:56 03/29/17 05:11 Bedside Glucose 146 156 137 White Blood Count 9.1 Red Blood Count 3.81 L Hemoglobin 11.3 L Hematocrit 35.8 L Mean Corpuscular Volume 94.0 Mean Corpuscular Hemoglobin 29.7 Mean Corpuscular Hemoglobin Concent 31.6 L Red Cell Distribution Width 13.9 Platelet Count 246 Mean Platelet Volume 11.3 H Neutrophils % 67.5 Lymphocytes % 18.1 Monocytes % 9.6 Eosinophils % 3.8 Basophils % 0.5 Nucleated Red Blood Cells % 0.0 Neutrophils # 6.2 Lymphocytes # 1.7 Monocytes # 0.9 Eosinophils # 0.4 Basophils # 0.1 Nucleated Red Blood Cells # 0.0 Sodium Level 145 H Potassium Level 4.2 Chloride Level 110 Carbon Dioxide Level 30 Anion Gap 9 Blood Urea Nitrogen 26 H Creatinine 0.77 Glucose Level 125 Calcium Level 9.3 Phosphorus Level 4.0 Magnesium Level 2.2 Test 03/29/17 05:44 Bedside Glucose 123 Medications Medications Current Medications Diagnostic Test (Pha) (Accu-Chek) 1 ea Q6 XX Last administered on 03/29/17t 05: 44; Admin Dose 1 EA; Start 03/20/17 at 06:00 Miscellaneous Information (Pending Santyl Order For Wound Care) This patient torres... PRN PRN XX WOUND CARE; Start 03/20/17 at 04:30 Miscellaneous Information 1 ea NOTE XX ; Start 03/20/17 at 05:00 Glucose (Glutose) 15 gm Q15M PRN PO DECREASED GLUCOSE; Start 03/20/17 at 05:00 Glucose (Glutose) 22.5 gm Q15M PRN PO DECREASED GLUCOSE; Start 03/20/17 at 05: 00 Dextrose (D50w Syringe) 25 ml Q15M PRN IV DECREASED GLUCOSE; Start 03/20/17 at 05:00 Dextrose (D50w Syringe) 50 ml Q15M PRN IV DECREASED GLUCOSE; Start 03/20/17 at 05:00 Glucagon (Glucagen) 1 mg Q15M PRN IM DECREASED GLUCOSE; Start 03/20/17 at 05: 00 Glucose (Glutose) 15 gm Q15M PRN BUCCAL DECREASED GLUCOSE; Start 03/20/17 at 05:00 Insulin Aspart (Novolog Insulin Pen) NOVOLOG *MODERATE* ALGORI... Q6 SC Last administered on 03/28/17 17:09; Admin Dose 2 UNIT; Start 03/20/17 at 06:00 Amlodipine Besylate (Norvasc) 2.5 mg BID PO Last administered on 03/28/17 21: 40; Admin Dose 2.5 MG; Start 03/20/17 at 09:00 Ascorbic Acid (Vitamin C) 500 mg DAILY PO Last administered on 03/29/17 09:01 ; Admin Dose 500 MG; Start 03/20/17 at 09:00 Levetiracetam (Keppra Liquid) 500 mg BID GTB Last administered on 03/29/17 09: 01; Admin Dose 500 MG; Start 03/20/17 at 09:00 Lisinopril (Zestril) 20 mg DAILY PO Last administered on 03/28/17 15:23; Admin Dose 20 MG; Start 03/20/17 at 09:00 Tramadol HCl (Ultram) 50 mg Q6H PRN GTB PAIN Last administered on 03/29/17 05: 47; Admin Dose 50 MG; Start 03/20/17 at 07:00 Collagenase (Santyl) 1 applic DAILY TOP Last administered on 03/27/17 09:02; Admin Dose 1 APPLIC; Start 03/22/17 at 09:00 Heparin Sodium (Porcine) 5000 unit 5,000 unit BID SC Last administered on 09:04; Admin Dose 5,000 UNIT; Start 03/23/17 at 10:00 Ceftriaxone Sodium (Rocephin) 50 ml @ 100 mls/hr Q24H IVPB Last administered on 03/28/17 11:21; Admin Dose 100 MLS/HR; Start 03/23/17 at 12:00 Aspirin 81 mg 81 mg DAILY GTB Last administered on 03/29/17 09:01; Admin Dose 81 MG; Start 03/26/17 at 09:00 Vancomycin HCl (Vancocin) 250 ml @ 125 mls/hr Q24H IVPB Last administered on 03/28/17 21:41; Admin Dose 125 MLS/HR; Start 03/27/17 at 21:00 IV Flush (NS 10 ml) 10 ml PRN PRN IV IV PROTOCOL; Start 03/27/17 at 16:30 Docusate Sodium (Colace Liquid Cup) 100 mg BID GTB Last administered on 09:01; Admin Dose 100 MG; Start 03/28/17 at 21:00 Polyethylene Glycol (Miralax) 17 gm HS GTB Last administered on 03/28/17 21: 40; Admin Dose 17 GM; Start 03/28/17 at 21:00 SONIYA NOBLE NP Mar 29, 2017 11:12
--- NOTE | 2017-03-29 12:37 | PDOCDIS ---
Discharge Instructions DIAGNOSIS Discharge Diagnosis Osteomyelitis of the left knee. CONDITION Patient Condition: Stable HOME CARE INSTRUCTIONS: Special Diet: Gtube: DiabeticSource OTHER ORDERS: Other Orders: 1. Medications as per medication list. 2. Continue current G-tube feedings. SUPA GONZALEZ NP Mar 29, 2017 12:37
[2017-03-29] MEDS ORDERED: CEFT1PIG2 IVPB (12:40)
[2017-03-29] MEDS ORDERED: VANC1PLA9 IV (12:40)
[2017-03-29] MEDS: CEFTRIAXONE 1 GM/50 ML (PMX) 50 ML IVPB SCH (13:23)
--- NOTE | 2017-03-29 15:19 | DS ---
Date/Time of Note Date/Time of Note DATE: 03/29/17 TIME: 15:19 Discharge Summary Admission/Discharge Info Admit Date/Time Mar 22, 2017 at 19:02 Discharge Date/Time Discharge Diagnosis 1. Decubitus ulcer of the left heel infected with polymicrobials with underlying osteomyelitis. 2. Essential hypertension. 3. Type 2 diabetes mellitus. 4. Seizure disorder. 5. Hypothyroidism. 6. Dysphagia. 7. Dementia. 8. CAD. 9. CVA. Patient Condition: Stable Consults 1. John Douglass MD, Infectious Disease. 2. Florin Gómez DPM, Podiatry. Procedures X-Ray Left Foot IMPRESSION: 1. Cortical loss with focal osteopenia of the posterior and inferior os calcis concerning for osteomyelitis. If clinically warranted consider further evaluation with MRI. 2. Soft tissue ulceration with subcutaneous emphysema underlying the os calcis. 3. Diffuse soft tissue edema posterior and inferior to the os calcis. 4. Demineralized osseous changes. 5. Degenerative changes of the tibiotalar and intertarsal joints. Hx of Present Illness This is a 86-year-old female with history of severe dementia, dysphagia on G- tube feeds, CAD, stroke, diabetes, and seizure disorder who was brought in from a long-term facility because of her left foot ulcer. The patient's left heel x-ray done on admission showed evidence of osteomyelitis. Provided the patient with history of present illness, her comorbidities, and the diagnostic findings, a clinical decision was made to admit the patient to inpatient setting to have her further evaluated. The patient was admitted to inpatient medical surgical floor. An infectious disease consult and podiatry consult was obtained. Hospital Course The patient's left heel wound culture was positive for polymicrobial's. The patient was maintained on antibiotics as per infectious diseases. Infectious diseases recommended continuing the patient on antibiotics for 6 weeks since there is evidence of osteomyelitis. The patient was evaluated by podiatry and recommended no surgical intervention. Because of the need for long-term antibiotics, the patient needed a PICC line. The PICC line insertion was ordered and the patient was unable to give consent for PICC line insertion because of the patient's advanced dementia. The patient's next of kin was unable to be reached even after trying with the help of a social work coordinator. Hence a clinical decision was made to insert the PICC line on this patient because of the clinical necessity for IV antibiotic therapy for an extended period of time. The patient had a PICC line inserted on 03/27/2017. The patient's chronic problems include underlying essential hypertension. She was maintained on antihypertensives for the same. The patient probably has underlying diabetes mellitus. The patient was maintained on sliding scale insulin. However the patient's blood sugars were very well controlled. The patient's hemoglobin A1c was found to be 5.9. The patient's insulin will be resumed at the long-term facility as indicated as per the discretion of the patient's primary care physician. The patient has seizure disorder. She was maintained on anticonvulsants for the same. She has underlying hypothyroidism. The patient was maintained on Synthroid for the same. The patient has underlying dysphagia and she is status post PEG tube placement. The patient was maintained on G-tube feedings. The patient was evaluated by a registered dietitian are recommended to increase the tube feedings to around-the -clock. The patient has underlying CAD. The patient was started on aspirin. The patient has underlying CVA. The patient was continued on aspirin. The patient had a stable hospital course. The patient is stable to be discharged back to a long-term facility to be followed up by the patient' s primary care physician. Discharge Disposition/Plan 1. The patient will be discharged to a long-term facility. 2. She will take medications as per medication reconciliation. Antibiotics will be continued to complete the course of 6 weeks. 3. The patient will be continued on the current G-tube feedings. At this time I would like to thank all the consultants for seeing the patient and providing clinical recommendations. The patient was seen in collaboration with Dr. Dior. Home Meds Active Scripts Aspirin* (Aspirin* Chew) 81 Mg Tab.chew, 81 MG GTB DAILY, #30 TAB.CHEW Prov:SUPA GONZALEZ NP 03/29/17 Vancomycin/0.9 % Sod Chloride (Vanco 1 Gram/250 ml-0.9% NaCl) 1 Gm/250 Ml Plast..bag, 1 GM IV Q24H, #60 Last day 05/04/2017 Prov:SUPA GONZALEZ CLINICAL PHYSICIAN ASSISTANT 03/29/17 Ceftriaxone Sod* (Rocephin* 1GM/50ML (PMX)) 1 Gm/50 Ml Iv.soln., 1 GM IVPB Q24H for 60 Days, EA Last day 05/04/2017 Prov:SUPA GONZALEZ CLINICAL PHYSICIAN ASSISTANT 03/29/17 Reported Medications Ascorbic Acid (Vitamin C) 500 Mg Tab, 500 MG PO DAILY, TAB 03/20/17 Tramadol Hcl* (Ultram*) 50 Mg Tablet, 50 MG GTB Q6H Y for PAIN, TAB 03/20/17 Pantoprazole* (Protonix*) 40 Mg Tablet.dr, 40 MG PO DAILY, TAB 03/20/17 Amlodipine Besylate* (Norvasc*) 2.5 Mg Tablet, 2.5 MG PO BID, TAB 03/20/17 Lisinopril* (Lisinopril*) 20 Mg Tablet, 20 MG PO DAILY, #30 TAB 03/20/17 Levothyroxine Sodium* (Synthroid*) 100 Mcg Tablet, 100 MCG PO BEFORE BREAKFAST, #30 TAB 03/20/17 Levetiracetam* (Keppra*) 500 Mg/5 Ml Solution, 500 MG GTB BID, BOTTLE 03/20/17 Follow-up Plan Patient to be discharged to long-term facility where the patient has a primary care physician following her. Primary Care Provider Jose Angel Wang MD Time spent on discharge: 40 minutes Pending Labs Name: LEONIE PRO Age/Sex: 86/F Attend Dr: JOSE ANTONIO DILLARD MD Acct: [id number] MR# : [id number] : 1930 Location: [facility] 2249-A Admit: 03/22/17 Specimen: [id number] Status: Complete Harry: 03/20/17 Rcvd: 03/20 Source: LEFT LEG Sp Descrip: Procedure Result Microbiology GRAM STAIN Final POLYMORPH. LEUKOCYTE NONE SEEN . NO ORGANISM SEEN WOUND CULTURE Final Organism 1 MORGANELLA MORGANII SSP MORG. QUANTITY 1+ Organism 2 PROTEUS MIRABILIS QUANTITY 1+ Organism 3 STREP GRP D NOT ENTEROCOCCUS QUANTITY ISOLATED FROM BROTH ONLY Organism 4 COAGULASE NEGATIVE STAPH QUANTITY ISOLATED FROM BROTH ONLY Organism 5 CORYNEBACTERIUM SPECIES QUANTITY ISOLATED FROM BROTH ONLY REPORTED CEFEPIME AND CEFTRIAXONE PER LORENZA TADEO NP AT 1103 03/23/2017 BY MIGUE. CORYNEBACTERIUM SPECIES: Clinical susceptibiltiy testing standard for this organism have not been established. However, this organism has demonstrated in vitro growth inhibition to the following chemotherapeutic agents listed as susceptible. ................................................................................ ............ Flags: Critical Hi = *H Critical Lo = *L Microbiology Abnormal = * Abnormal Hi = H Abnormal Lo = L Blood Bank Abnormal = * Susceptability Flags: S = Sensitive R = Resistant I = Intermediate CONTINUED ON NEXT PAGE RUN DATE: 03/25/17 [facility] PAGE 2 RUN TIME: [id number] [place] [address] Mayo Gaitan M.D. [employer] [place]#: [id number] Patient: LEONIE PRO [id number] Specimen: [id number] Collected: 03/20/17 Received: 03/20/17 (Continued) Procedure Result WOUND CULTURE Final (continued) LUIS FERNANDO BURK NEG M.I.C. RX M.I.C. RX M.I.C. RX --------- --- --------- --- --------- --- AMIKACIN <=2 S AMPICILLIN <=2 S CEFAZOLIN S CEFEPIME <=1 S <=1 S CEFOTAXIME S S CEFTRIAXONE <=1 S <=1 S CIPROFLOXACIN >=4 R >=4 R >=8 R CLINDAMYCIN R DOXYCYCLINE S ERYTHROMYCIN >=8 R GENTAMICIN 2 S LEVOFLOXACIN >=8 R >=8 R >=8 R OXACILLIN 0.5 S PENICILLIN-G >=0.5 R RIFAMPIN <=0.5 S VANCOMYCIN <=0.5 S TOBRAMYCIN 2 S 4 S TRIMETHOPRIM/SULFAMETHOXAZOLE >=320 R >=320 R <=10 S MALCOLM MADDEN SPS Zone Size RX Zone Size RX --------- --- --------- --- * AMPICILLIN R S * CEFAZOLIN R S * CEFOTAXIME R S * CEFUROXIME R S * CIPROFLOXACIN R R * CLINDAMYCIN R R * ERYTHROMYCIN R R * PENICILLIN R S * VANCOMYCIN S S ................................................................................ ............ Flags: Critical Hi = *H Critical Lo = *L Microbiology Abnormal = * Abnormal Hi = H Abnormal Lo = L Blood Bank Abnormal = * Susceptability Flags: S = Sensitive R = Resistant I = Intermediate END OF REPORT Laboratory Tests Test 03/28/17 16:59 03/29/17 00:56 03/29/17 05:11 03/29/17 05:44 Bedside Glucose 156mg/dL (70-220) 137mg/dL (70-220) 123mg/dL (70-220) White Blood Count 9.110^3/ul (4.8-10.8) Red Blood Count 3.8110^6/ul (4.20-5.40) Hemoglobin 11.3g/dl (12.0-16.0) Hematocrit 35.8% (37.0-47.0) Mean Corpuscular Volume 94.0fl (82.0-101.0) Mean Corpuscular Hemoglobin 29.7pg (29.0-33.0) Mean Corpuscular Hemoglobin Concent 31.6g/dl (32.0-37.0) Red Cell Distribution Width 13.9% (11.5-14.5) Platelet Count 28875^3/UL (140-415) Mean Platelet Volume 11.3fl (7.4-10.4) Neutrophils % 67.5% (39.0-77.0) Lymphocytes % 18.1% (15.0-51.0) Monocytes % 9.6% (0.0-11.0) Eosinophils % 3.8% (0.0-7.0) Basophils % 0.5% (0.0-2.0) Nucleated Red Blood Cells % 0.0/100WBC (0.0-0.0) Neutrophils # 6.210^3/ul (1.6-7.5) Lymphocytes # 1.710^3/ul (0.8-2.9) Monocytes # 0.910^3/ul (0.3-0.9) Eosinophils # 0.410^3/ul (0.0-0.5) Basophils # 0.110^3/ul (0.0-0.1) Nucleated Red Blood Cells # 0.010^3/ul (0.0-0.0) Sodium Level 145mmol/L (135-144) Potassium Level 4.2mmol/L (3.5-5.1) Chloride Level 110mmol/L (97-110) Carbon Dioxide Level 30mmol/L (21-31) Anion Gap 9 (8-16) Blood Urea Nitrogen 26mg/dl (7-20) Creatinine 0.77mg/dl (0.44-1.00) Glucose Level 125mg/dl (70-220) Calcium Level 9.3mg/dl (8.4-10.2) Phosphorus Level 4.0mg/dl (2.5-4.9) Magnesium Level 2.2mg/dl (1.7-2.5) Test 03/29/17 13:24 Bedside Glucose 140mg/dL (70-220) SUPA GONZALEZ NP Mar 29, 2017 15:19
[2017-03-29] MEDS ORDERED: ASPI81TA3 GTB (18:10)
== END 2017-03-29 16:50 | DRG 637 ==
LOC: E/R 21:25 → PP2 03-20 03:35 → OBSVTOIN 03-22 19:02
PROVIDERS: ADMIT Internal Medicine; ATTEND Internal Medicine
PROC: 02HV33Z Insertion of Infusion Device into Superior Vena Cava, Percutaneous Approach (ICD-10-PCS; principal; 2017-03-27)
PROC: B548ZZA Ultrasonography of Superior Vena Cava, Guidance (ICD-10-PCS; 2017-03-27)
DX: E11.621 Type 2 diabetes mellitus with foot ulcer (principal); L89.623 Pressure ulcer of left heel, stage 3; M86.172 Other acute osteomyelitis, left ankle and foot; L97.424 Non-pressure chronic ulcer of left heel and midfoot with necrosis of bone; E11.42 Type 2 diabetes mellitus with diabetic polyneuropathy; R13.10 Dysphagia, unspecified; G30.9 Alzheimer's disease, unspecified; F02.80 Dementia in other diseases classified elsewhere, unspecified severity, without behavioral disturbance, psychotic disturbance, mood disturbance, and anxiety; I69.391 Dysphagia following cerebral infarction; G40.909 Epilepsy, unspecified, not intractable, without status epilepticus; B96.4 Proteus (mirabilis) (morganii) as the cause of diseases classified elsewhere; I10 Essential (primary) hypertension; I25.10 Atherosclerotic heart disease of native coronary artery without angina pectoris; E03.9 Hypothyroidism, unspecified; M62.462 Contracture of muscle, left lower leg; B95.2 Enterococcus as the cause of diseases classified elsewhere; Z16.35 Resistance to multiple antimicrobial drugs; K21.9 Gastro-esophageal reflux disease without esophagitis; Z79.4 Long term (current) use of insulin; Z93.1 Gastrostomy status; Z79.82 Long term (current) use of aspirin
CPT/HCPCS: 36415; 36569; 71010; 76937; 80048; 80053; 80202; 82962; 83036; 83690; 83735; 84100; 84145; 85025; 85610; 85651; 85730; 87040; 87070; 87081; 90686; 96365; 96375; G0378; J0692; J0696; J1644; J1815; J2543; J3370; J3480